=== PATIENT | female | born 1995 | race Caucasian/White ===

== ENCOUNTER 2020-03-16 11:01 | Emergency (ER) | payer MEDICAID, SELFPAY ==
[2020-03-16 11:02] VITALS: BP 152/97; PULSE 86; RESP 16; TEMP 36.9; O2SAT 100; BMI 24.5
--- NOTE | 2020-03-16 11:16 | ED.DCSUM_ITS ---
History of Present Illness Informant: Patient Occurred: Yesterday Mechanism/Context: Injury Onset: Yesterday Context: Sudden Onset Timing: Continuous Quality of Pain: Sharp, Throbbing Location: right knee Current Severity: Severe Maximum Severity: Severe Worsened by: movements, walking Relieved by: nothing Associated Symptoms: Negative for: Parasthesia, Weakness, Loss of Funtion Narrative: 24-year-old female with history of previous right ACL repair x2 presents with right knee injury. Yesterday she was walking on the stairs when her knee buckled and popped and gave out on her and she fell. She is having right knee pain and swelling. She feels it could be another ACL injury. She was at the emergency department at [facility] this morning they did an x-ray but told her they were unable to do an MRI. She presents here as well because she is having uncontrolled pain with anti-inflammatories. She has been resting and icing. She has an appointment with orthopedic surgeon but not until next week. Denies any other review of systems at this time. Tetanus Immunization: Unknown Prior similar symptoms: Yes Recent Illness/Hospitalization: No <Chirag Martinez - Last Filed: 03/16/20 12:21> <Yahir Rodrgiuez - Last Filed: 03/16/20 12:50> Chief Complaint: Lower Extremity Injury Past Medical History Prior records reviewed: Yes Past Medical History: None Surgical History: - - right knee ACL repair x 2 and right knee meniscus repair Lives: With Family Smoking Status: Former smoker Alcohol: Occasional Drugs: None <Chirag Martinez - Last Filed: 03/16/20 12:21> <Yahir Rodriguez - Last Filed: 03/16/20 12:50> - Allergies and Home Meds Allergies/Adverse Reactions: Allergies No Known Allergies Allergy (Verified 03/16/20 11:03) Primary Care Physician: Jossy Larson DO [Primary Care Provider] - Review of Systems All systems negative except as indicated General: Denies: Chills, Fever, Malaise Eyes: Denies: Visual changes - bilaterally, Blurred Vision - bilaterally, Diplopia ENT: Denies: Rhinorrhea, Sore throat Cardiovascular: Denies: Chest pain, Palpitations, Heart racing Respiratory: Denies: Dyspnea, Cough, Sputum Gastrointestinal: Denies: Abdominal pain, Nausea, Vomiting, Diarrhea, Constipation Genitourinary: Denies: Dysuria, Hematuria, Frequency Musculoskeletal: Reports: Swelling, Extremity Pain. Denies: Neck pain, Back pain Skin: Denies: Rash, Abscess, Abrasions, Wounds Neurological: Denies: Headache, Weakness, Parasthesia, Numbness Psych: Denies: Depression, Anxiety <Chirag Martinez - Last Filed: 03/16/20 12:21> Physical Exam Vital Signs/Narrative: Vital Signs Temp Pulse Resp BP Pulse Ox 03/16/20 11:02 98.4 F 86 16 152/97 H 100 Inital Vital Signs reviewed: Yes - Extremity Exam Right Knee: Edema, Limited ROM, - - Patient's right knee is diffusely swollen. She is diffusely tender anteriorly and medially. She has limited range of motion secondary to swelling and pain. She has normal DP and PT pulse. She has no bony tenderness of her leg ankle or foot. She has no pain over her distal quadriceps. She has no pain over her hip. Her most sensation throughout her right lower extremity. Negative for: Abrasion, Contusion, Deformity, Hematoma General: Well nourished, Well developed Head: Normocephalic, Atraumatic Eyes: Perrl, EOMI ENT: No Trauma, Moist Mucous Membranes Neck: Nontender, Full ROM Cardiovascular: Regular rate, Regular rhythm, No murmurs Respiratory: No distress, CTA bilaterally, Chest nontender Abdomen: Soft, Nontender, Nondistended, Normal bowel sounds Back: Nontender Skin: Normal color, No rash, No Trauma Neurological: Alert, Oriented x3 Psychological: Normal affect, Normal Mood <Chirag Martinez - Last Filed: 03/16/20 12:21> Vital Signs/Narrative: Vital Signs Temp Pulse Resp BP Pulse Ox 03/16/20 11:02 98.4 F 86 16 152/97 H 100 <Yahir Rodriguez - Last Filed: 03/16/20 12:50> Diagnostic/Tx/Re-eval - Medical Decision Making Patient had an x-ray done this morning at [facility] which I was able to review and demonstrated postsurgical changes but no acute findings. Patient is requesting an MRI and I discussed with her we are unable to have this performed at this time emergently. She has already scheduled an appointment with her orthopedic surgeon next week which she will keep. She states that she has crutches at home as well which she did not bring with her. I advised her that she continue to rest and ice and alternate Motrin as well as Tylenol. <Chirag Martinez - Last Filed: 03/16/20 12:21> - Medical Decision Making Patient was seen with me. I did a [id number] examination with the patient. Patient presents with right knee pain that has been getting worse over the past few days. Patient was seen at another hospital and had x-rays which were negative. Patient states her pain is not being controlled with Naprosyn. Patient denies any paresthesias or weakness. Patient denies any new injuries. Vital signs are stable. Patient is afebrile. Patient is in no acute distress. Musculoskeletal exam reveals tenderness over the right knee. Extensor mechanism intact. Strength is 5/5 bilateral lower extremities. There are no sensory deficits noted. There is some guarding on examination but there is no laxity noted. Patient was given a dose of Fairmount here. Patient was given a prescription for short course of Fairmount. Patient was instructed to ice and elevate the right knee. Patient was instructed to follow-up with her orthopedic surgeon as scheduled. Patient understood and was agreeable with the plan. All questions were answered. <Yahir Rodriguez - Last Filed: 03/16/20 12:50> ED Disposition <Chirag Martinez - Last Filed: 03/16/20 12:21> <Yahir Rodriguez - Last Filed: 03/16/20 12:50> - Plan for ED Patient: Disposition: Home or Assisted Living Diagnosis: Sprain of right knee Instructions: ED Sprain Knee Prescriptions: Hydrocodone Bitart/Apap 5-325 [Fairmount 5MG-325MG] 1 tab PO Q6H PRN PRN 3 Days #10 tab PRN Reason: Pain Prescription Printed Referrals: Jossy Larson DO [Primary Care Provider] -
[2020-03-16] MEDS: HYDROcodone Bitartrate/Apap 5/325 Tablet PO (11:31)
== END 2020-03-16 12:34 | disposition home or self-care (01) ==
PROVIDERS: Emergency Provider Physician Assistant Medical; PCP Orthopaedic Surgery
DX: S83.91XA Sprain of unspecified site of right knee, initial encounter (principal); W10.9XXA Fall (on) (from) unspecified stairs and steps, initial encounter; Y93.01 Activity, walking, marching and hiking; Y92.9 Unspecified place or not applicable; Z87.891 Personal history of nicotine dependence
CPT/HCPCS: 99283

== ENCOUNTER → 2020-03-22 11:06 | Outpatient (CLI) | payer MEDICAID, SELFPAY ==
[2020-03-19 14:45] VITALS: BMI 24.5
--- NOTE | 2020-03-22 11:10 | MRI_ITS ---
STUDY: MRI RIGHT KNEE REASON FOR EXAM: Pain/swelling of the right knee after a fall, unable to bend, symptoms for 2 weeks, 2 prior surgeries. TECHNIQUE: Standardized fat and water weighted pulse sequences were obtained in all 3 orthogonal planes. COMPARISON: MRI images 10/01/2015, radiographs 09/18/2015. FINDINGS: There is a partial medial meniscectomy. There is interval development of a small horizontal tear of the free margin of the body of the medial meniscus (proton density coronal images 18, 19) tracking fluid (T2 coronal images 18, 19). There is interval development of a small oblique band of signal in the posterior horn of the medial meniscus extending to the inferior articular surface (proton density sagittal image 26), suggestive of small recurrent medial meniscal tear. Normal hyaline cartilage of the medial femorotibial compartment. Normal medial femoral condyle and tibial plateau. Normal medial collateral ligamentous complex (MCL). Normal distal semimembranosus, gracilis and semitendinosus tendons. There is a partial lateral meniscectomy without demonstrated recurrent lateral meniscal tear. Normal hyaline cartilage of the lateral femorotibial compartment. Normal lateral femoral condyle and tibial plateau. Normal proximal tibiofibular articulation. Normal lateral collateral (fibular) ligament. Normal popliteus tendon. Normal biceps femoris tendon. The anterior cruciate ligament graft appears intact (series 8 image 11). Normal posterior cruciate ligament (PCL). Normal congruent patellofemoral articulation. Normal hyaline cartilage of the patellofemoral compartment. Normal medial and lateral patellar retinaculum. Normal quadriceps tendon. Normal patellar tendon. There is postoperative scarring in Hoffa''s fat pad. There is a small joint effusion. There is a thin medial patellar plica. The soft tissues are unremarkable. There are postoperative changes of the distal femur and proximal tibia from anterior cruciate ligament reconstruction. MRI/Lower Ext Joint Only (Routine) IMPRESSION: Partial medial meniscectomy with small recurrent medial meniscal tears. Partial lateral meniscectomy without demonstrated recurrent lateral meniscal tear. Intact anterior cruciate ligament graft. Small joint effusion. Electronically Signed: Toño Giraldo MD at 12:43 EDT Tel , Service support ,
== END ==
PROVIDERS: Referring Provider Physician Assistant; Visit Provider Physician Assistant
DX: M23.51 Chronic instability of knee, right knee (principal)
CPT/HCPCS: 73721

== ENCOUNTER 2020-04-18 08:17 | Day surgery (SDC) | payer MEDICAID, SELFPAY ==
[2020-03-27 12:37] VITALS: BMI 24.5
[2020-04-18] VITALS (9 sets, daily range): BP systolic 113–139; BP diastolic 60–91; PULSE 76–92; RESP 16; TEMP 36.4–37.6; O2SAT 93–100; BMI 23.3
[2020-04-18 09:05] LABS: Internal QC Validated? YES +Cl - CLEAR BKGD; Pregnancy, Urine Negative Negative
[2020-04-18] MEDS: Lactated Ringers 1,000 ML 100 ML IV (09:11)
--- NOTE | 2020-04-18 09:36 | PCM.HP.BLA ---
History and Physical I have re-examined the patient. There are no clinical changes since date of exam. Intake Intake Visit Reasons: right knee Allergies No Known Allergies Allergy (Verified 03/16/20 11:03) [facility] Social History (Updated 03/27/20 @ 13:[address] Jossy Larson DO) Smoking Status: Former smoker HPI right knee: Details: Parts of this documentation were recorded by a scribe, this documentation accurately reflects the service provided and the decisions made by me, Dr. Jossy Larson DO 03/27/20 1233. SAMUEL KINNEY is a 24 year old F here today for F/U on right knee after having MRI completed on 03/22/2020. She states that she continues to have right knee pain with decreased ROM. She has been wearing a wrap knee brace. States that her swelling has subsided. patient has h/o ACL reconstruction of right knee in 2012, and meniscus repair in 2016. ROS Musc Reports as per HPI, Reports abnormal walking, Reports joint pain, Reports joint swelling, Reports stiffness Skin/Breast Reports as per HPI Neuro Yes abnormal walking Ortho Exam Left Knee Skin/Wound: No ecchymosis, No erythema, Yes swelling Contralateral Normal: Yes Homans Sign: No Knee ROM: No ROM-Extension -20 to 0 (approc 10 degree lag), No ROM-Flexion 0-140 (approx 50 degrees) Examination: Yes med jt line tenderness, Yes Pain with flexion, Yes Willie's Test Apprehension with Lateral Translation: No KNEE: Inspection of the right knee show some mild generalized swelling with small effusion. Patient has evident decreased range of motion with approximately 10 degrees of lag in extension and only able to flex to about 50 degrees. Patient has a lot of guarding at this time and therefore is a little difficult to perform all maneuvers. She does have discomfort with modified Willie's test. Her anterior drawer test again is difficult to ascertain with her guarding. There does appear to be some minor laxity compared to the left. She does have normal sensation throughout the extremity and intact motor function of the ankle/foot/toes. She has normal distal pedal pulses. Assessment & Plan Problems 1. Tear of medial meniscus of right knee, current, unspecified tear type, subsequent encounter J32.768H 2. Tear of lateral meniscus of right knee, current, unspecified tear type, subsequent encounter S83.281D 3. Sprain of anterior cruciate ligament of right knee, subsequent encounter S83.511D Plan Personally reviewed patients MRI fo the right knee. Patient educated that she does have a medial and lateral meniscus tear. Patient educated on the surgical precedures. Patient educated that an option for her ACL would be a new ACL with the cadaver graft if she wishes because she would not be Patient educated that her ACL is loose and if the ACL is torn she does wish to have this fixed at the same time. Patient is currently on house arrest and does have a monitoring bracelet that she will need removed prior to surgery and this will need moved to her left ankle post op. Reviewed the pre-operative plans with the patient. Risks and benefits of the procedure were fully explained, including but not limited to infection, neurovascular injury, continued pain, arthritis, stiffness, need for further surgery, re-injury, DVT, PE, general risks of anesthesia, and loss of limb or life. The patient understands all the risks and does wish to proceed with written consent for right knee arthroscopy, lat and /or med men repair, acl recon with arthrex graftlink. As well as bone grafting was discussed preoperatively Follow up post op or sooner if pain, swelling, numbness or associated symptoms, or concerns develop. All questions answered. Patient in agreement of plan. We discussed the current risk associated COVID-19. While it is understood that there is a community spread of COVID 19 the risk of wilson COVID-19 while at [facility] is very low, however, the risk cannot be completely mitigated because of the community spread of the disease. We discussed in detail the risk of exposure to and or potential harm posed by the COVID-19 virus with having a surgery/procedure at this time versus the risk of delaying the surgery/procedure. Is not possible to know either the risk of delaying the surgery procedure or chance of getting an infection with perfect accuracy, but a joint decision was made to proceed at this time with a schedule surgery/procedure as indicated on the consent form. Patient was notified that we will need to comply with any screening or testing [facility] wishes to perform or that surgery may be delayed for any positive results. Coding Level of Care Code Off vis,est,level 4 Diagnoses Tear of medial meniscus of right knee, current, unspecified tear type, subsequent encounter S83.241D ??Encounter type: subsequent encounter ??Meniscus of knee: medial ??Meniscus tear of knee type: unspecified type ??Tear current or old: current Tear of lateral meniscus of right knee, current, unspecified tear type, subsequent encounter S83.281D ??Encounter type: subsequent encounter ??Meniscus tear of knee type: unspecified type ??Tear current or old: current Sprain of anterior cruciate ligament of right knee, subsequent encounter S83.511D ??Encounter type: subsequent encounter Procedure Criteria Procedure Type: Elective COVID Risk Discussion: The surgeon/proceduralist and patient have discussed in detail the risk of exposure to and/or potential harm posed by the COVID-19 virus with having a surgery/procedure at this time versus the risk of delaying the surgery/procedure. It is not possible to know either the risk of delaying the surgery or procedure or chance of getting an infection with perfect accuracy, but a joint decision was made between the patient and the surgeon/proceduralist to proceed at this time with the scheduled surgery/procedure as indicated on the consent form.
--- NOTE | 2020-04-18 09:37 | DCINST_ITS ---
Discharge Diet: No Restrictions - Remove dressings postop day 4 and apply Band- Aids to incision sites, may shower and get incision wet postop day 4, weight- bear as tolerated left leg, call with increased pain numbness tingling or further issues arise, call if calf pain or calf swelling, start Lovenox postop day 1, take pain medications as prescribed do not take any other Tylenol products, follow-up in 2 weeks Discharge Activity: May Not Drive May shower in (days): 1 Ice area for (Minutes): 20 - Every hour while awake. Weight Bearing Status: Weight bearing as tolerated Keep extremity elevated above heart level: Operative Extremity Call your doctor if your incision/area has: Continuous Slow Oozing, Sudden Increased Bleeding, Increased Pain/ Swelling, Increased Redness, Foul Smelling Discharge Call your doctor if you observe: Fever of 101 or Higher, Coldness, Increased Pain, Numbness or Tingling, Change in Color, Calf discomfort Allergies/Adverse Reactions: Allergies No Known Allergies Allergy (Verified 04/18/20 09:05) Medications to take at Discharge Enoxaparin Sodium [Lovenox] 40 mg SQ DAILY 42 Days #42 ml 04/18/20 Oxycodone HCl/Acetaminophen [Percocet 5/325] 1 - 2 tab PO Q6H PRN PRN 5 Days #28 tab 04/18/20 The following prescriptions were given: Enoxaparin Sodium [Lovenox] 40 mg SQ DAILY 42 Days #42 ml Transmission Status: Received by [facility] Oxycodone HCl/Acetaminophen [Percocet 5/325] 1 - 2 tab PO Q6H PRN PRN 5 Days #28 tab PRN Reason: Pain Transmission Status: Received by [facility] Primary Care Physician: Care Physician,No Primary [Primary Care Provider] - Test Results: Test results from this visit will be discussed in further detail at your follow- up appointment, if applicable. Please Follow Up With: Jossy Larson, - [phone]
--- NOTE | 2020-04-18 09:37 | PCM.OPRPT ---
Report of Operation Date of Procedure: 04/18/20 Pre-Operative Diagnosis: Right knee medial and lateral meniscus tears, lax ACL with from prior reconstruction Post-Operative Diagnosis: Same Surgery/Procedure Performed:: Right knee arthroscopy, medial and lateral meniscectomies, ACL reconstruction with Arthrex graft link 9.5 lye peel operator: Delonte Anderson Type of Anesthesia:: General Anesthesiologist: Sreedhar Stone Specimen's removed: tt- 105 Estimated Blood Loss (mL): min Fluids Replaced: 900cc lr Description of Procedure: Preop note Patient is a 24-year-old female well-known to me. Patient has a history of a right ACL and meniscus repair in the past. Patient states recurrent instability of the right knee and pain. xrays show button in the notch which was potential cause of instability and looseness of graft and we tried to treat conservatively but has repeated instability. Repeat MRI confirms medial and lateral meniscus tears with intact graft. On physical exam she does have a lax drawer and Lauckman's on her right lower extremity and pain med/lateral. Discussed all options with patient we had in the past repair diminished medial meniscus and not her ACL at that time she however at this point she is still loose and she has recurrent medial meniscus tears and is a candidate for ACL revision. Risk benefits and alternatives were discussed the patient risk include but not limited to blood loss, blood clot, infection, stiffness, arthrofibrosis, neurovascular, failure procedure, loss of life and loss of limb. Patient is aware like to do the right knee arthroscopy ACL reconstruction with allograft graft link, partial medial lateral meniscus meniscectomy versus medial meniscus medial lateral meniscus repairs. Deejay OSEI We discussed the current risk associated COVID-19. While it is understood that there is a community spread of COVID 19 the risk of wilson COVID-19 while at [facility] is very low, however, the risk cannot be completely mitigated because of the community spread of the disease. We discussed in detail the risk of exposure to and or potential harm posed by the COVID-19 virus with having a surgery/procedure at this time versus the risk of delaying the surgery/procedure. Is not possible to know either the risk of delaying the surgery procedure or chance of getting an infection with perfect accuracy, but a joint decision was made to proceed at this time with a schedule surgery/procedure as indicated on the consent form. Patient was notified that we will need to comply with any screening or testing [facility] wishes to perform or that surgery may be delayed for any positive results. Operative note Patient seen and examined preoperative holding area. Right knee was marked. Patient brought to the operating placed supine on the operating table. Signed, anesthesia, antibiotics were administered. The right leg was prepped and draped in usual usual sterile fashion with a tourniquet on her upper thigh. All bony prominences well-padded and SCDs placed on her contralateral limb. We marked out our incision from her previous portals from her previous surgery as well as her anterior medial tibial incision as well as her lateral femoral incision from the flip cutter. Right leg was then elevate exsanguinated tourniquet was raised her pressure of 250 torr. We repaired the Arthrex graft link graft on the back table in standard technique. We created an anterior lateral portal with 11 blade. Begin our diagnostic arthroscopy.. The patellofemoral joint was unremarkable moved to the medial joint line. Created an anteromedial portal under direct visualization. There was extensive scarring throughout the anterior medial anterior lateral portal and joint recesses. We then inserted a shaver and shaved back the anteromedial anteriorly lateral aspect. The post posterior horn to mid body of the medial meniscus was then completely torn off and scarred and anteriorly which was gently released with a shaver and was not reparable. She had barely any remnant meniscus of the mid body left. We then inserted probed the remaining meniscus was intact and stable probing. She had some arthritic changes already developing on the medial aspect of her medial tibial plateau as well as some spur formation on the distal medial femoral cortex condyle. The ACL was then visualized and we did a drawer under direct visualization and the graft itself was lax. We then shaved out the ACL. We then moved to the lateral meniscus there is a anterior leading edge tear of the anterior horn of the of the lateral meniscus was gently debrided but debrided back to a stable rim. The rest of the meniscus was intact and stable probing. We visualized her tunnel which is probably a little more anterior than 1 would have liked we will visualize this and placed our femoral tunnel a bit more posterior we drilled a weight measure 9.5 in the back table for graft we did in standard technique drill with a flip cutter 25 mm back using a 9.5. We then did the same on the tibial side in standard technique. After drilling we did make our tibial side drill tunnel bit more anterior as to bypass both tunnels we do not have to graft or use cement for any of the previous tunnels. We then placed the graft we placed the graft through the femoral tunnel flipped the button on the lateral femoral cortex brought the graft into the femoral tunnel shaved please note that prior to this we did irrigate out any bony pieces both on the femoral tunnel and tibial tunnel. We then moved to the tibial tunnel brought the graft through the tibial tunnel after retrieving it from the anteromedial tibial tunnel distally. We then placed a dog bone button over the anteromedial tibial with the leg in extension and slight posterior drawer placed. We then brought the graft further into the femoral tunnel with a from the femoral side. We then truncated the white sutures on either side which tied the suture please note over the dog been prior to this. We then irrigated all incisions copious as a sterile saline the portals were closed with interrupted nylon stitches the incisions were closed with 2-0 Vicryl and 4-0 nylon. Tourniquet was deflated for total working time of 105 minutes. Sterile dressings and a brace locked in extension during ambulation and at night and allowed to be 0 to 90 degrees during seated. No complication child recovery room in stable condition patient received a postop regional block Postoperative note Toe-touch weightbearing right leg Discussed with boyfriend Pharmacy has prescriptions we will start Lovenox postop day 1 Patient to receive her alcohol bracelet this afternoon or tomorrow Call with increased pain numbness tingling or issues arise Discussed signs and symptoms of blood clot and what to watch for patient to place ankle sensor on opposite ankle and to watch for swelling This note was generated with [employer] dictation software. It may contain incorrect words, spelling, and punctuation that were not noted in checking the note before signing.
[2020-04-18] MEDS: Cefazolin 2 GM in 0.9% Normal Saline 100 ML IV (09:42)
[2020-04-18] MEDS: Epinephrine (1 mg/ml) 1 MG/ML VIAL (12:06)
[2020-04-18] MEDS: Mupirocin Ointment 22gm Tube 1 APPLIC (12:06)
[2020-04-18] MEDS: HYDROcodone Bitartrate/Apap 5/325 Tablet PO (14:00)
== END 2020-04-18 14:41 | disposition home or self-care (01) ==
LOC: SDC 08:19 → AC 08:20
PROVIDERS: Anesthesiology; Referring Provider Orthopaedic Surgery; Visit Provider Orthopaedic Surgery
PROC: (CPT 29888; principal; 2020-04-18 09:40)
DX: S83.241A Other tear of medial meniscus, current injury, right knee, initial encounter (principal); S83.281A Other tear of lateral meniscus, current injury, right knee, initial encounter; S83.511A Sprain of anterior cruciate ligament of right knee, initial encounter; Z11.59 Encounter for screening for other viral diseases; Z87.891 Personal history of nicotine dependence
CPT/HCPCS: 29880; 29888; 64447; 81025; 87635; C1713; G2023; J7120; J2405; U0003

== ENCOUNTER 2020-10-09 11:00 | Outpatient (RCR) | payer MEDICAID, SELFPAY ==
[2020-10-02 09:36] VITALS: BP 128/92; PULSE 92; RESP 16; TEMP 36.8; BMI 22.6
--- NOTE | 2020-10-02 12:27 | PCM.WC.HP ---
(1) Surgical wound dehiscence Status: Chronic Qualifiers: Encounter type: initial encounter Qualified Code(s): T81.31XA - Disruption of external operation (surgical) wound, not elsewhere classified, initial encounter Code(s): T81.31XA - Disruption of external operation (surgical) wound, not elsewhere classified, initial encounter (2) Surgical site infection Status: Chronic Code(s): T81.49XA - Infection following a procedure, other surgical site, initial encounter (3) Open wound of knee with complication Status: Chronic Qualifiers: Encounter type: initial encounter Laterality: right Qualified Code(s): S81.001A - Unspecified open wound, right knee, initial encounter Code(s): S81.009A - Unspecified open wound, unspecified knee, initial encounter (4) Infection of right knee Status: Chronic Code(s): M00.9 - Pyogenic arthritis, unspecified History of Present Illness Date of Service: 10/02/20 Chief Complaint: Infected wound, right knee History of Wound: This is a 24-year-old generally healthy white female who presents with an open, draining sinus tract inferior and medial to her right knee. She has a history of 3 prior knee surgeries in the past, performed by Dr. Jossy Larson, Orthopedic Surgeon. Among the prior surgeries, a right knee arthroscopy, lateral meniscectomy, and bucket-handle repair was performed on October 31, 2015. The patient's most recent surgery was performed on October 19, 2019, at which time she underwent a right knee arthroscopy, medial and lateral meniscectomies, and an ACL reconstruction with an Arthrex graft link 9.5. The patient apparently recovered uneventfully from her most recent surgery in April, with complete healing of the arthroscopic surgical sites. Approximately 1 month ago. The patient noted fluctuance and erythema at one of the arthroscopic entry sites medial and inferior to the right knee. The fluctuant area subsequently spontaneously drained a lot of pus. Since that time, the site has continued to drain a yellowish, cloudy, purulent-appearing liquid drainage. She has been referred to our wound healing facility by her currency exchange specialist for further evaluation and management. According to the patient, she is yet to achieve full range of motion in the right knee postoperatively. She wears a splint to bed each night which is intended to enhance the degree of extension in her right knee joint. She ambulates with a slight limp, but is independent and fully mobile. It appears as though cultures have not been previously obtained, though the patient has previously completed a course of oral Bactrim. She is currently using mupirocin topically to the wound on a daily basis. She denies recent fever, sweats, or chills. Past Medical History Past Medical History: Chronic Problems Surgical wound dehiscence (Chronic) Surgical site infection (Chronic) Open wound of knee with complication (Chronic) Infection of right knee (Chronic) Past Medical History: Patient's history is negative for myocardial infarction, congestive heart failure, hypertension, diabetes mellitus, cerebrovascular accident, cancer, renal disease, pulmonary disease, thyroid disease, and hyperlipidemia. Surgical History: - - Right knee ACL repair x 2 and right knee meniscus repair; the patient has undergone an IUD placement and subsequent removal; the patient is a Ab0. Allergies/Adverse Reactions: Allergies No Known Allergies Allergy (Verified 10/02/20 09:50) Home Medications: Ambulatory Orders Medication Instructions Recorded mupirocin 2 % topical ointment 1 applic TOPICAL BID #15 g 09/06/20 - Family History Paternal - - Patient's father is 53 years of age and healthy. The patient's mother is 51 years of age and healthy. Social History: Patient is employed as a environmental compliance officer. She denies use of tobacco products. She consumes alcoholic beverages occasionally. Lives: Alone Smoking Status: Former smoker Tobacco Use: Non-smoker Alcohol: Occasional Drugs: None Review of Systems Constitutional: Denies: Chills, Fever, Weight Change Eyes: Denies: Pain, Vision Change HEENT: Denies: Difficulty Hearing, Difficulty Swallowing, Sinus Congestion Cardiovascular: Denies: Chest Pain, Palpitations Respiratory: Denies: Cough, Shortness of Breath Gastrointestinal: Denies: Diarrhea, Nausea, Vomiting Genitourinary: Denies: Dysuria, Hematuria Endocrine: Denies: Heat/ Cold Intolerance, Polydipsia, Polyuria Hematologic/ Lymphatic: Denies: Easy Bruising, Easy Bleeding - Physical Exam Vital Signs Temp Pulse Resp BP 98.2 F 92 16 128/92 H 10/02/20 09:36 10/02/20 09:36 10/02/20 09:36 10/02/20 09:36 General: Alert, Oriented x3, Cooperative, No apparent distress, Well developed, Well nourished, - - The patient appears to be of normal body habitus. HEENT: Atraumatic, PERRLA, EOMI, Normocephalic Oral: Moist Mucosa Neck: No JVD Lungs: Normal air movement Abdomen: Non-Distended Extremities: No clubbing, No cyanosis, No edema, No Calf Tenderness Addt'l Wound Findings: A very small opening is noted inferior to the right knee, and located medially. This appears to be the external opening of a sinus tract. The opening is only approximately 2 mm in diameter. There is a slight amount of surrounding erythema. Manual pressure enables the elicitation of purulent drainage from the opening. Therefore, after expressing a small amount of purulent drainage from the site, swab cultures were obtained for aerobic and anaerobic growth. A sterile metal probe was used carefully to probe the tract, and it was found that a tract exists extending superiorly up towards the knee joint and measuring approximately 1.6 cm in length. The probe appeared to contact underlying bone. Wound Measurements and Assessment WC - Nurse 1 - General Ulcer Measurement Start: 10/02/20 09:26 Freq: Status: Active Protocol: Activity Type Activity Date Activity User E-Sign Co-Sign Detail Recorded Client Recorded Date Recorded By Document 10/02/20 09:36 [facility] [id number] 10/02/20 09:49 [facility] 10/02/20 09:36 Wound Center Nurse 1 [Ulcer Assessment] #1 L MEDIAL KNEE -Combined with other wound No -Current Size (cm) - Length 0.6 -Current Size (cm) - Width 0.1 -Current Size (cm) - Depth 0.2 -Total Square Cm 0.06 -Date of Last Picture (Recall this 10/02/20 field) -Photo Taken Yes -Epithelialization None Present -Tunneling No -Undermining/Tunneling No -Circular Undermining No -Exudate Amt Small -Exudate Type Serous -Wound Margin Distinct, Outline Attached -Granulation Amt None Present (0 %) -Slough/Fibrin Yes -Necrosis Amt Large (67-100%) -Necrotic Tissue Type Adherent Slough -Texture (May-wound Skin Appearance) Assessed, Localized Edema ,Scarring -Moisture (May-wound Skin Appearance Assessed ) -Color (May-wound Skin Appearance) Assessed -Temperature (May-wound Skin No Abnormality Appearance) (Pt Warm) -Tenderness on Palpation (May-wound Yes Skin Appearance) -Ulcer Cleansing Rinsed/ Irrigated with Saline -Foul Odor after Cleansing No -Anesthetic Used 5% Lidocaine Gel [Edema Assessment] -Lower Limb Edema Present No -Right Calf (cm) 30.2 -Right Ankle (cm) 18.6 WC - Nurse 2 - General Ulcer CM Notes Start: 10/02/20 09:26 Freq: Status: Active Protocol: Activity Type Activity Date Activity User E-Sign Co-Sign Detail Recorded Client Recorded Date Recorded By Document 10/02/20 11:40 [address] [id number] 10/02/20 11:42 PL 10/02/20 11:40 Wound Center Nurse 2 [Procedure/Treatment] #1 L MEDIAL KNEE -Procedure Performed No -Post Debridement (cm) - Length 0.1 -Post Debridement (cm) - Width 0.1 -Post Debridement (cm) - Depth 1.6 -Total Square (Post) (cm) 0.01 -Wound/Ulcer Outcome Not Healed -Ulcer Cleansing Rinsed/ Irrigated with Saline -Foul Odor after Cleansing No [See Physician Procedure note for Specifics] Pain Scale: 0-10 Numeric [Pain] -Is Patient Pain Free? Yes - Nurse 3 - General Ulcer D/C NN Start: 10/02/20 09:26 Freq: Status: Active Protocol: Activity Type Activity Date Activity User E-Sign Co-Sign Detail Recorded Client Recorded Date Recorded By Document 10/02/20 10:37 [facility] [id number] 10/02/20 10:38 [facility] 10/02/20 10:37 Wound Care Nurse 3 [Wound Dressing] #1 L MEDIAL KNEE -Ulcer Cleansing Rinsed/ Irrigated with Saline -Foul Odor after Cleansing No -Primary Dressing Applied Other -Other Dressing BACTROBAN -Primary Dressing Covered/Secured Dry Gauze, with Secured with Tape [Post Procedure Tolerated] -Treatment Response Procedure Tolerated Well Pain Scale: 0-10 Numeric [Pain] -Is Patient Pain Free? Yes - Visit Discharge [Visit Discharge Information] -Discharge Condition Stable -Ambulatory Status Ambulatory -Transportation Private Auto Debridement Note Post-Debridement Measurements/Treatment WC - Nurse 2 - General Ulcer CM Notes Start: 10/02/20 09:26 Freq: Status: Active Protocol: Activity Type Activity Date Activity User E-Sign Co-Sign Detail Recorded Client Recorded Date Recorded By Document 10/02/20 11:40 PL [id number] 10/02/20 11:42 PL 10/02/20 11:40 Wound Center Nurse 2 #1 L MEDIAL KNEE -Procedure Performed No -Post Debridement (cm) - Length 0.1 -Post Debridement (cm) - Width 0.1 -Post Debridement (cm) - Depth 1.6 -Total Square (Post) (cm) 0.01 -Wound/Ulcer Outcome Not Healed -Ulcer Cleansing Rinsed/ Irrigated with Saline -Foul Odor after Cleansing No Pain Scale: 0-10 Numeric Is Patient Pain Free? Yes - Nurse 3 - General Ulcer D/C NN Start: 10/02/20 09:26 Freq: Status: Active Protocol: Activity Type Activity Date Activity User E-Sign Co-Sign Detail Recorded Client Recorded Date Recorded By Document 10/02/20 10:37 [facility] [id number] 10/02/20 10:38 [facility] 10/02/20 10:37 Wound Care Nurse 3 #1 L MEDIAL KNEE -Ulcer Cleansing Rinsed/ Irrigated with Saline -Foul Odor after Cleansing No -Primary Dressing Applied Other -Other Dressing BACTROBAN -Primary Dressing Covered/Secured with Dry Gauze, Secured with Tape Treatment Response Procedure Tolerated Well Pain Scale: 0-10 Numeric Is Patient Pain Free? Yes WC - Visit Discharge Discharge Condition Stable Ambulatory Status Ambulatory Transportation Private Auto No debridement was completed today Assessment/Plan Assessment: This is a generally healthy 24-year-old female who presents with 3 prior arthroscopic surgical procedures relative to her right knee. The most recent procedure was performed on April 18, 2020, entailing a right knee arthroscopy, medial and lateral meniscectomies, and an ACL reconstruction with Arthrex graft link 9.5. Judging from the patient's recent history, and presenting manifestations, there is concern as to underlying infection which may involve bone (osteomyelitis), or prosthetic material such as savannah, clips, sutures, etc. Plan: Swab cultures have been obtained of the purulent drainage from the patient's right knee wound, which is suspected to be a draining sinus tract which may be related to an underlying infection of wound or prosthetic material. We will await the results of culture and sensitivity, and react accordingly. These results will likely require at least 2 to 3 days. Given concerns regarding involvement of the underlying bone or joint, or possibly prosthetic material, it is felt that a multidisciplinary approach is warranted. Thus, Dr. Larson will be contacted,or her PA, Delonte Anderson. It will be helpful to understand the extent of infection and the tissues involved. This will likely require some form of imaging. A discussion will be undertaken as to the most optimal imaging modality for the patient to undergo to determine the extent of infection, and the involvement of underlying tissues. Patient is to return in 1 week for reassessment. By that time, it is anticipated that a multidisciplinary approach will have been formulated in conjunction with the patient's orthopedic surgeon. The patient is not a smoker. Influenza vaccine was not administered today. The patient weighs 120 pounds. She stands 5 feet 1 inches tall. Her BMI is 22.7, which is normal.
[2020-10-09 11:14] VITALS: BP 151/93; PULSE 100; TEMP 36.9; BMI 22.6
--- NOTE | 2020-10-09 12:57 | HP.PCM_ITS ---
(1) Surgical wound dehiscence Status: Chronic Qualifiers: Encounter type: subsequent encounter Qualified Code(s): T81.31XD - Disruption of external operation (surgical) wound, not elsewhere classified, subsequent encounter Code(s): T81.31XA - Disruption of external operation (surgical) wound, not elsewhere classified, initial encounter (2) Surgical site infection Status: Chronic Code(s): T81.49XA - Infection following a procedure, other surgical site, initial encounter (3) Open wound of knee with complication Status: Chronic Qualifiers: Encounter type: subsequent encounter Laterality: right Qualified Code(s): S81.001D - Unspecified open wound, right knee, subsequent encounter Code(s): S81.009A - Unspecified open wound, unspecified knee, initial encounter (4) Infection of right knee Status: Chronic Code(s): M00.9 - Pyogenic arthritis, unspecified History of Present Illness Date of Service: 10/09/20 Chief Complaint: Infected wound, right knee History of Wound: This is a 24-year-old generally healthy white female who presented with an open, draining sinus tract inferior and medial to her right knee. She has a history of 3 prior knee surgeries in the past, performed by Dr. Jossy Larson, Orthopedic Surgeon. Among the prior surgeries, a right knee arthroscopy, lateral meniscectomy, and bucket-handle repair were performed on October 31, 2015. The patient's most recent surgery was performed on October 19, 2019, at which time she underwent a right knee arthroscopy, medial and lateral meniscectomies, and an ACL reconstruction with an Arthrex graft link 9.5. The patient apparently recovered uneventfully from her most recent surgery in April, with complete healing of the arthroscopic surgical sites. Approximately 1 month prior to presentation, the patient noted fluctuance and erythema at one of the arthroscopic entry sites medial and inferior to the right knee. The fluctuant area subsequently spontaneously drained a lot of pus. Since that time, the site has continued to drain a yellowish, cloudy, purulent- appearing liquid drainage. She has been referred to our wound healing facility by her hospitality specialist for further evaluation and management. According to the patient, she is yet to achieve full range of motion in the right knee postoperatively. She wears a splint to bed each night which is intended to enhance the degree of extension in her right knee joint. She ambulates with a slight limp, but is independent and fully mobile. It appeared as though cultures had not been previously obtained, though the patient had previously completed a course of oral Bactrim. She was using mupirocin topically to the wound on a d aily basis. She denied recent fever, sweats, or chills. Past Medical History Past Medical History: Chronic Problems Surgical wound dehiscence (Chronic) Surgical site infection (Chronic) Open wound of knee with complication (Chronic) Infection of right knee (Chronic) Surgical History: - - Right knee ACL repair x 2 and right knee meniscus repair; the patient has undergone an IUD placement and subsequent removal; the patient is a Ab0. Allergies/Adverse Reactions: Allergies No Known Allergies Allergy (Verified 10/02/20 09:50) Home Medications: Ambulatory Orders Medication Instructions Recorded mupirocin 2 % topical ointment 1 applic TOPICAL BID #15 g 09/06/20 - Family History Paternal - - Patient's father is 53 years of age and healthy. The patient's mother is 51 years of age and healthy. Lives: Alone Smoking Status: Former smoker Tobacco Use: Non-smoker Alcohol: Occasional Drugs: None Review of Systems Constitutional: Denies: Chills, Fever, Weight Change Eyes: Denies: Pain, Vision Change HEENT: Denies: Difficulty Hearing, Difficulty Swallowing, Sinus Congestion Cardiovascular: Denies: Chest Pain, Palpitations Respiratory: Denies: Cough, Shortness of Breath Gastrointestinal: Denies: Diarrhea, Nausea, Vomiting Genitourinary: Denies: Dysuria, Hematuria Endocrine: Denies: Heat/ Cold Intolerance, Polydipsia, Polyuria Hematologic/ Lymphatic: Denies: Easy Bruising, Easy Bleeding - Physical Exam Vital Signs Temp Pulse Resp BP 98.5 F 100 16 151/93 H 10/09/20 11:14 10/09/20 11:14 10/02/20 09:36 10/09/20 11:14 General: Alert, Oriented x3, Cooperative, No apparent distress, Well developed, Well nourished HEENT: Atraumatic, PERRLA, EOMI, Normocephalic Oral: Moist Mucosa Neck: No JVD Lungs: Normal air movement Abdomen: Non-Distended Extremities: No clubbing, No cyanosis, No edema, No Calf Tenderness Addt'l Wound Findings: A small open wound persists of the right lower extremity, located inferior and slightly medial to the right knee. The opening is very small. It appears to represent a sinus tract. There is little or no surrounding erythema. The site has again been gently probed with a sterile metal probe, and appears to track superiorly towards the knee joint, extending to underlying bone. With manual pressure in the area, a slightly yellowish, turbid fluid is expressed, which was cultured today by swab, for both aerobic and anaerobic growth. This is despite the fact that cultures were obtained last week, and were positive for Corynebacterium minutissium, rare in amount, and a possible skin contaminant. Skin: No rashes Wound Measurements and Assessment WC - Nurse 1 - General Ulcer Measurement Start: 10/02/20 09:26 Freq: Status: Active Protocol: Activity Type Activity Date Activity User E-Sign Co-Sign Detail Recorded Client Recorded Date Recorded By Document 10/09/20 11:14 [id number] 10/09/20 11:21 10/09/20 11:14 Wound Center Nurse 1 [Ulcer Assessment] #1 R MEDIAL KNEE -Current Size (cm) - Length 0.5 -Current Size (cm) - Width 0.2 -Current Size (cm) - Depth 0.1 -Total Square Cm 0.10 -Wound Margin Distinct, Outline Attached -Necrosis Amt Small (1-33%) -Necrotic Tissue Type Adherent Slough -Texture (May-wound Skin Appearance) Assessed, Scarring -Moisture (May-wound Skin Appearance No Abnormality, ) Assessed -Temperature (May-wound Skin No Abnormality Appearance) (Pt Warm) -Tenderness on Palpation (May-wound No Skin Appearance) -Ulcer Cleansing Rinsed/ Irrigated with Saline -Foul Odor after Cleansing No -Anesthetic Used 5% Lidocaine Gel WC - Nurse 3 - General Ulcer D/C NN Start: 10/02/20 09:26 Freq: Status: Active Protocol: Activity Type Activity Date Activity User E-Sign Co-Sign Detail Recorded Client Recorded Date Recorded By Document 10/09/20 11:36 [facility] [id number] 10/09/20 11:37 [facility] 10/09/20 11:36 Wound Care Nurse 3 [Wound Dressing] -Primary Dressing Covered/Secured Dry Gauze, with Secured with Tape [Post Procedure Tolerated] -Treatment Response Procedure Tolerated Well Pain Scale: 0-10 Numeric [Pain] -Is Patient Pain Free? Yes WC - Visit Discharge [Visit Discharge Information] -Discharge Condition Stable -Ambulatory Status Ambulatory -Transportation Private Auto Musculoskeletal: No Muscle Wasting Neurological: Cranial nerves II-XII grossly intact, Neuro grossly intact Psych/Mental Status: Normal Affect, Appropriate, Alert and oriented to time, place, person, mood and affect Debridement Note Post-Debridement Measurements/Treatment - Nurse 2 - General Ulcer CM Notes Start: 10/02/20 09:26 Freq: Status: Active Protocol: Activity Type Activity Date Activity User E-Sign Co-Sign Detail Recorded Client Recorded Date Recorded By Document 10/02/20 11:40 PL [id number] 10/02/20 11:42 PL 10/02/20 11:40 Wound Center Nurse 2 #1 R MEDIAL KNEE -Procedure Performed No -Post Debridement (cm) - Length 0.1 -Post Debridement (cm) - Width 0.1 -Post Debridement (cm) - Depth 1.6 -Total Square (Post) (cm) 0.01 -Wound/Ulcer Outcome Not Healed -Ulcer Cleansing Rinsed/ Irrigated with Saline -Foul Odor after Cleansing No Pain Scale: 0-10 Numeric Is Patient Pain Free? Yes - Nurse 3 - General Ulcer D/C NN Start: 10/02/20 09:26 Freq: Status: Active Protocol: Activity Type Activity Date Activity User E-Sign Co-Sign Detail Recorded Client Recorded Date Recorded By Document 10/02/20 10:37 [facility] [id number] 10/02/20 10:38 [facility] Document 10/09/20 11:36 [facility] [id number] 10/09/20 11:37 [facility] 10/02/20 10/09/20 10:37 11:36 Wound Care Nurse 3 #1 R MEDIAL KNEE -Ulcer Cleansing Rinsed/ Irrigated with Saline -Foul Odor after Cleansing No -Primary Dressing Applied Other -Other Dressing BACTROBAN -Primary Dressing Covered/Secured with Dry Gauze, Dry Gauze, Secured with Secured with Tape Tape Treatment Response Procedure Procedure Tolerated Well Tolerated Well Pain Scale: 0-10 Numeric Is Patient Pain Free? Yes Yes - Visit Discharge Discharge Condition Stable Stable Ambulatory Status Ambulatory Ambulatory Transportation Private Auto Private Auto No debridement was completed today Assessment/Plan Active Problems Surgical wound dehiscence (Chronic) Surgical site infection (Chronic) Open wound of knee with complication (Chronic) Infection of right knee (Chronic) Assessment: This is a generally healthy 24-year-old female who presented with 3 prior arthroscopic surgical procedures on her right knee. The most recent procedure was performed on April 18, 2020, entailing a right knee arthroscopy, medial and lateral meniscectomies, and an ACL reconstruction with Arthrex graft link 9.5. Judging from the patient's recent history, and presenting manifestations, there is concern as to underlying infection which may involve bone (osteomyelitis), or prosthetic material such as savannah, clips, sutures, etc. the culture, obtained last week, has been positive for Corynebacterium minutissium, which was rare in amount, and a possible skin contaminant. Plan: Swab cultures have been obtained of the purulent drainage from the patient's right knee wound, which is suspected to be a draining sinus tract related to an underlying infection of bone or prosthetic material. Cultures obtained last week were positive for Corynebacterium minutissium, though rare, and possibly a skin contaminant. A repeat culture has been obtained today. We will await the results of culture and sensitivity, and react accordingly. Given concerns regarding involvement of the underlying bone or joint, or possibly prosthetic material, it is felt that a multidisciplinary approach is warranted. I spoke 1 week ago with NAZ Marti, who is associated with Dr. Larson's practice. It will be helpful to understand the extent of infection and the tissues involved, likely to require some form of imaging. A discussion was undertaken with Delonte Anderson as to the most optimal imaging modality for the patient to undergo to determine the presence and extent of infection, and the involvement of underlying tissues. It was decided that the patient would most benefit from an MRI. Delonte Anderson indicated that he would initiate the preauthorization process, and would order an MRI scan of the right knee as soon as possible. We will await those results. We also await the results of her most recent culture and sensitivity, performed today by swab. The patient is to return in 2 weeks for reassessment. By that time, it is hoped that the MRI scan will have been completed, and a plan of management will be formulated in conjunction with the patient's orthopedic surgeon. In the interim, the patient is to maintain a dry sterile gauze dressing over the site, changed at least daily. The patient is not a smoker. Influenza vaccine was not administered today. The patient weighs 120 pounds. She stands 5 feet 1 inches tall. Her BMI is 22.7, which is normal.
== END 2020-10-18 23:59 ==
LOC: WC 11:00
PROVIDERS: Referring Provider Physician Assistant; Visit Provider Surgery
DX: T81.31XA Disruption of external operation (surgical) wound, not elsewhere classified, initial encounter (principal); Y83.8 Other surgical procedures as the cause of abnormal reaction of the patient, or of later complication, without mention of misadventure at the time of the procedure; M00.861 Arthritis due to other bacteria, right knee; Z87.891 Personal history of nicotine dependence
CPT/HCPCS: 87070; 87075; 87077; 87205; 99212; 99213; G0463

== ENCOUNTER → 2020-10-26 07:26 | Outpatient (CLI) | payer MEDICAID, SELFPAY ==
[2020-10-09 11:14] VITALS: BMI 22.6
--- NOTE | 2020-10-26 07:27 | MRI_ITS ---
STUDY: MRI RIGHT KNEE WITH AND WITHOUT CONTRAST REASON FOR EXAM: Female, 24 years old. Open wound. 3. Prior surgeries. TECHNIQUE: Standardized fat and water weighted pulse sequences were obtained in all 3 orthogonal planes. Post contrast evaluation was obtained following administration of gadolinium. COMPARISON: 03/22/2020. FINDINGS: Patient motion. Grade 2 patellofemoral cartilage loss. Grade 3/4 cartilage loss at the lateral compartment. Grade 4 cartilage loss at the medial compartment. No acute fracture line. No acute dislocation. Extensive bone marrow edema/contusion at the proximal tibia (sagittal image 13 series 6). Status post anterior cruciate ligament reconstruction. Graft appears intact as well aligned. Normal posterior cruciate ligament. Extensive soft tissue enhancement at Hoffa''s fat pad. Extensive bone marrow enhancement at the proximal tibia. Enhancement at the tibial ACL graft attachment site. Small popliteal lymph nodes (sagittal image 12 series 10) measuring up to 1.3 cm. Moderate volume joint effusion. No popliteal cyst. Soft tissue swelling surrounds the proximal tibia extending into Hoffa''s fat pad. Scarring at Hoffa''s fat pad. Truncated appearance to the lateral meniscal body with mild extrusion (coronal image 12 series 7). Markedly truncated appearance of the medial meniscus with minimal residual intact normal meniscal tissue (sagittal image 16 through 20 series 6). No new meniscal tears identified. Normal medial collateral ligament. Normal lateral collateral ligament. Normal distal semimembranosus, gracilis and semitendinosus tendons. Normal proximal tibiofibular articulation. Normal popliteus tendon. Normal biceps femoris tendon. Intact medial and lateral patellar retinaculum. Intact quadriceps tendon. Intact patellar tendon. MRI/Lower Ext Joint Only W/WO Cont IMPRESSION: Extensive Hoffa''s fat pad soft tissue swelling with additional proximal tibial bone marrow edema/contusion and enhancement (potential inflammatory/stress reaction versus infectious etiology given the clinical history; correlate ESR/CRP, blood cultures and WBC) Status post ACL repair with graft intact Revisualized medial and lateral partial meniscectomies Advanced medial and lateral compartment cartilage loss Slightly prominent popliteal lymph nodes (statistically reactive/inflammatory) Moderate volume joint effusion Electronically Signed: Yahir Knutson DO at 9:19 EST Tel , Service support ,
== END ==
PROVIDERS: Referring Provider Physician Assistant; Visit Provider Physician Assistant
DX: T81.31XA Disruption of external operation (surgical) wound, not elsewhere classified, initial encounter (principal); T81.49XA Infection following a procedure, other surgical site, initial encounter; S81.009A Unspecified open wound, unspecified knee, initial encounter; M00.9 Pyogenic arthritis, unspecified
CPT/HCPCS: 73723; A9575

== ENCOUNTER → 2020-10-29 12:32 | Outpatient (CLI) | payer MEDICAID, SELFPAY ==
[2020-10-09 11:14] VITALS: BMI 22.6
[2020-10-29 13:49] LABS: Absolute Lymphocyte Count 2.55 X10^3/uL (0.83-4.51); Absolute Neutrophil Count 9.4 X10^3/uL (2.0-7.7); Basophil# 0.05 X10^3/uL; Basophil% 0.4 % (0-1); Eosinophil# 0.04 X10^3/uL; Eosinophils% 0.3 % (0-5); Hematocrit 43.8 % (37-47); Hemoglobin 14.5 g/dL (12.0-15.0); Lymphocyte # 2.55 X10^3/ul (4.0); Lymphocyte % 19.5 % (19-41); Mean Corp Hgb Conc 33.1 g/dL (32-36); Mean Corpuscular Hgb 31.7 pg (27.0-32.0); Mean Corpuscular Volume 95.8 fL (81-99); Mean Platelet Vol. 9.8 fl (6.2-12.0); Monocyte# 0.97 X10^3/uL; Monocyte% 7.4 % (0-10); NRBC Flagged by Analyzer 0 % (0-5); Neutrophil # 9.42 X10^3/uL (2.7-7.7); Neutrophil % 71.9 % (47-70); Platelet Count 402 K/mm3 (150-450); RBC Distribution Width CV 12.7 % (11.6-14.6); RBC Distribution Width SD 45.1 fl (35.1-43.9); Red Blood Count 4.57 M/mm3 (4.2-5.4); White Blood Count 13.1 K/mm3 (4.4-11.0)
[2020-10-29 14:02] LABS: CRP 7.63 mg/L (0.0-3.0)
[2020-10-29 14:04] LABS: Erythrocyte Sedimentation Rate 7 mm/hr (0-30)
== END ==
PROVIDERS: Visit Provider Physician Assistant
DX: T81.49XA Infection following a procedure, other surgical site, initial encounter (principal); T81.31XA Disruption of external operation (surgical) wound, not elsewhere classified, initial encounter; S81.009A Unspecified open wound, unspecified knee, initial encounter; M00.9 Pyogenic arthritis, unspecified
CPT/HCPCS: 36415; 85025; 85652; 86140; 87040

== ENCOUNTER 2020-11-01 11:56 | Inpatient (IN) | payer MEDICAID, SELFPAY ==
[2020-11-01] VITALS (10 sets, daily range): BP systolic 124–144; BP diastolic 73–103; PULSE 71–100; RESP 16–18; TEMP 35.9–37.6; O2SAT 94–100; BMI 22.6
--- NOTE | 2020-11-01 | FLU_PTH ---
PATIENT: SAMUEL KINNEY LOC: MS3 U#:[id number] AGE/SX: 24/F [place] [facility] [facility] [place]: Dr. Jossy Larson, : 1995 BED: 1 DIS: 11/03/2020 SPEC #: [id number] RECD: 11/02/20 07:25 STATUS: KATARZYNA BRANDON #: [id number] MUSHTAQ: 11/01/20 00:[address]: Jossy Larson DEPT: CYTOLOGY RECD BY: Hari Pelayo ENTERED: 11/02/20 07:25 SP TYPE: Fluid OTHR DR: Dr. Rc You MD No Primary Care Phys Tissues: Knee, NOS Procedures: Special Stain Group II Surgery Specimen Level IV Cytospin Fluid HEADER OPERATION: Not noted PRE-OP DIAGNOSIS: Probable infected hardware, right knee TISSUE SUBMITTED: Knee fluid for cytology DIAGNOSIS CYTOLOGY Knee fluid for cytology (cytospin and cell block): Negative for malignant cells. Acute inflammation. JOELLEN:heike 11/05/2020 COMMENT Please also make reference to corresponding surgical specimen [id number]. CYTOLOGY STUDY Slides are reviewed. CYTOLOGY GROSS Received is 2 ml of red, cloudy fluid labeled with the patient's name and and designated per the requisition as knee. Submitted for cytology preparation including cell block. / heike 11/02/2020 TC:5 CPT: 13638, 34585
--- NOTE | 2020-11-01 01:10 | HP_ITS ---
I have re-examined the patient. There are no clinical changes since date of exam. Intake Intake Visit Reasons: right knee Accompanied by: Self Is patient in pain?: Yes Allergies No Known Allergies Allergy (Verified 10/30/20 10:13) [facility] Social History (Updated 09/06/20 @ 15:50 by Delonte CHILDS, NAZ) Smoking Status: Former smoker HPI right knee: Details: Parts of this documentation were recorded by a scribe, this documentation accurately reflects the service provided and the decisions made by me, Dr. Jossy Larson, DO 10/30/20 1009. SAMUEL KINNEY is a 24 year old F here today for a follow up of her right knee after eval with Dr. Roa. Also here to discuss her recent blood work and MRI. Patient completed her blood work on 10/29/2020 and her MRI was completed on 10/26/2020. Patient states she is having some irritation where her wound is infected along with some stiffness of her right knee. Patient states she was told not to return to the wound clinic until she had her MRI completed. Patient is currently not putting anything on her wound and not taking anything OTC. ROS Musc Reports system reviewed and no additional complaints, except as docu, Reports joint pain, Denies numbness, Reports stiffness, Denies tingling Neuro No numbness, No tingling Ortho Exam Right Knee Date of Surgery: 04/18/20 Knee ROM: Yes ROM-Flexion 0-140 (90) Assessment & Plan Plan Discussed with patient her blood work, such as her CRP was elevated. Patient has her inflammatory markers are elevated as well and needs to be addressed surgically with bone sent for evaluation of infection, needs albumin, lfts sent day of, overnight stay and culture following with ID. Discussed patient will have to have surgery, and be admitted overnight to administer IV ATB's post-op. Patient is risk of considerable morbidity and has been noncompliant Patient will need an albumin test done as well. Patient will need to spend two nights in the hospital to get cultures back in time. Will have Dr. Lawrence Palmer on hand during the patient's surgery. discussed lack of follow up and risks to life and limb. on physical exam, no erythema but site of previous incision has chronic Reviewed the pre-operative plans with the patient. Risks and benefits of the procedure were fully explained, including but not limited to infection, neurovascular injury, continued pain, arthritis, stiffness, need for further surgery, re-injury, DVT, PE, general risks of anesthesia, and loss of limb or life. The patient understands all the risks and does wish to proceed with written consent. All questions answered. Patient in agreement of plan. Follow up post-op or sooner if pain, swelling, numbness or associated symptoms, or concerns develop. Orders Orders: Culture, Blood (WB) 10/29/20 M00.9, S81.009A, T81.31XA, T81.49XA Culture, Blood (WB) 10/29/20 M00.9, S81.009A, T81.31XA, T81.49XA Plan Detail Follow Up post-op
[2020-11-01 12:37] LABS: Internal QC Validated? YES +Cl - CLEAR BKGD; Pregnancy, Urine Negative Negative
[2020-11-01] MEDS: Lactated Ringers 1,000 ML 100 ML IV ×2 (12:43→18:11)
[2020-11-01 13:10] LABS: AST(SGOT) 33 U/L (15-37); Alanine Aminotransfer ALT/SGPT 22 U/L (13-56); Albumin, Serum 4.7 g/dL (3.2-5.0); Alkaline Phosphatase 98 U/L (45-117); Bilirubin, Direct 0.14 mg/dL (0.00-0.30); Globulin 4.3 g/dL (2.2-4.2)
--- NOTE | 2020-11-01 13:30 | TISS_PTH ---
PATIENT: SAMUEL KINNEY LOC: MS3 U#:[id number] AGE/SX: 24/F [place] [facility] [place]11/01/[address]: Dr. Jossy Larson, : 1995 BED: 1 DIS: 11/03/2020 SPEC #: [id number] RECD: 11/01/20 15:01 STATUS: KATARZYNA BRANDON #: [id number] MUSHTAQ: 11/01/20 13:[address]: Jossy Larson DEPT: SURGICAL PATHOLOGY RECD BY: Debi Peña ENTERED: 11/02/20 08:36 SP TYPE: Tissue Bx [facility] DR: Dr. Rc You MD No Primary Care Phys Tissues: A - Right knee B - Right knee C - Right knee Procedures: Decalcification bone/plaque Surgery Specimen Level IV HEADER OPERATION: Right knee arthroscopy, extensive synovectomy/debridement PRE-OP DIAGNOSIS: Probable infected hardware, right knee TISSUE SUBMITTED: A - Right knee tendon, B - Debrided right knee tissue, C - Debrided tibia bone right knee MICROSCOPIC DIAGNOSIS A. Right knee tendon, biopsy: Tendinous tissue with degenerative change. Fibrinopurulent material. B. Right knee tissue, debridement: Synovium with acute inflammation and fibrinopurulent material. C. Tibial bone, debridement: Soft tissue with focal chronic inflammation. Bone with chronic change. No evidence of acute osteomyelitis. AM:heike 11/07/2020 MICROSCOPIC DESCRIPTION Slides are reviewed. GROSS DESCRIPTION A - Received fresh for frozen section diagnosis labeled with the patient's name is a specimen designated right knee tendon. The specimen consists of a piece of skin with underlying tissue measuring 3 x 1.5 x 0.2 cm. The underlying tissue shows an indurated area with focal possible calcification. Frozen section was canceled after talking to Dr. Larson due to indurated calcified areas. The entire specimen is submitted in one cassette after decalcification. / SJ: 11/01/20 B - Received in fixative is one container labeled with the patient's name and designated debrided right knee tissue. The specimen consists of two pieces of irregular soft tissue measuring 2 x 1 x 0.5 cm and 1 x 0.2 x 0.2 cm. The larger piece if bisected. The entire specimen is submitted in one cassette. / SJ: 11/02/20 C - Received in fixative is one container labeled with the patient's name and designated debrided tibia bone. The specimen consists of multiple pieces of bone that in aggregate measure 2 x 1 x 0.3 cm. The entire specimen is submitted in one cassette after decalcification. / JOELLEN:heike 11/02/20 TC:2 CPT: 59586 x3, 72291 x2
[2020-11-01] MEDS: Cefazolin 2 GM in 0.9% Normal Saline 100 ML IV (13:38)
[2020-11-01] MEDS: Epinephrine (1 mg/ml) 1 MG/ML VIAL (14:00)
[2020-11-01 14:32] LABS: Acid Fast Stain SEE PATHOLOGY REPORT; Cytology, Body Fluid / CSF SEE PATHOLOGY REPORT
--- NOTE | 2020-11-01 15:47 | PCM.DC.ORTHO ---
Discharge Diet: No Restrictions - nwb right leg, extension locked at night as well as during crutch use, ok to open while seated, elevate, ice and ankle pumps as tolerated, xarelto daily, call with concerns Discharge Activity: May Not Drive May shower in (days): 1 Ice area for (Minutes): 20 - Every hour while awake. Weight Bearing Status: Weight bearing as tolerated Keep extremity elevated above heart level: Operative Extremity Call your doctor if your incision/area has: Continuous Slow Oozing, Sudden Increased Bleeding, Increased Pain/ Swelling, Increased Redness, Foul Smelling Discharge Call your doctor if you observe: Fever of 101 or Higher, Coldness, Increased Pain, Numbness or Tingling, Change in Color, Calf discomfort Allergies/Adverse Reactions: Allergies No Known Allergies Allergy (Verified 11/01/20 12:26) Medications to take at Discharge Oxycodone HCl/Acetaminophen [Percocet 5/325] 1 - 2 tablet PO Q6H PRN PRN 5 Days #28 tablet 11/01/20 The following prescriptions were given: Oxycodone HCl/Acetaminophen [Percocet 5/325] 1 - 2 tablet PO Q6H PRN PRN 5 Days #28 tablet PRN Reason: Pain Transmission Status: Sent to [facility] Primary Care Physician: Care Physician,No Primary [Primary Care Provider] - Test Results: Test results from this visit will be discussed in further detail at your follow-up appointment, if applicable. Please Follow Up With: Jossy Larson, DO - [phone]
--- NOTE | 2020-11-01 15:52 | OP.PCM_ITS ---
Report of Operation Date of Procedure: 11/01/20 Pre-Operative Diagnosis: right knee arthrofibrosis; infectious vs inflammatory reaxn proximal tibia to foreign tissue graft/metal hardware Post-Operative Diagnosis: same boring machine set up operator jig: Delonte Anderson Type of Anesthesia:: General Anesthesiologist: Blas Escobar Specimen's removed: soft tissue, graft, bone, metal hardware Drains: rogelio Estimated Blood Loss (mL): 25cc Fluids Replaced: 1400cc Description of Procedure: Preop note Patient is a 24-year-old female who had a revision allograft ACL reconstruction back in April. Patient not seen in postop follow up d/t noncompliance. Patient per patient patient had increased drainage of small little pinhole from her wound she was seen as an outpatient at a urgent care and started on Bactrim she saw us about 7 days later the and site was markedly improved was told to follow- up in wound care in a week however patient failed to follow-up with wound care for over a month. She saw the wound care and at that time she had more drainage from the proximal tibial graft site where there also was metal. She patient was cultured at that time grew out a rare cornerback dura cultured a second time and is thought to be a contaminant it was a negative wound culture the second time. Patient has been noncompliant with visits to wound care as well as to our outpatient orthopedic office. We did get an MRI and MR with and without contrast to further evaluate the fact that she has chronic sinus tract at an area where she does have hardware. An MRI was inconclusive however blood work came back as an elevated CRP and white count blood cultures were negative. See chart for further details. The decision was made at that point to explore the area of the tibia she is also has some arthrofibrosis she never went to physical therapy so she has some stiffness of her right knee so this question with patient was to take her to the OR wound did extensive synovectomy debridement manipulation under anesthesia and evaluate the proximal tibial incision for infection versus inflammatory reaction to the graft. Risk benefits alternatives surgery discussed with patient. Risk include but not limited to blood loss, blood clot, infection, neurovascular, failure procedure, loss of life and loss of limb. Patient is aware like to proceed with left right knee arthroscopy repair as indicated. Covid Dragon Covid Dragon Covid Dragon Covid Operative note Patient seen and examined preoperative holding area. Right leg was marked. Patient brought to the operating placed supine on the operating table. Sign in, anesthesia, antibiotics were administered. Right leg was then prepped and draped as usual usual sterile technique. We then elevated the leg and tourniquet was raised to a pressure of 250 torr. Timeout was performed. We used her previous anterior lateral anterior medial portal placement for our arthroscopy. We flexed the knee and were able to gain full flexion we still had about 25 degree loss of extension. We performed we then performed extensive synovectomy and debridement making sure to release the anterior gutters after this was done we did noted that we had able to maintain full [id number]. She had extensive scarring and she had previous meniscectomy was there there was no new medial meniscus medial or lateral meniscus tears that were probed that were felt to be unstable however she did have extensive scarring around the patella as well and this was debrided extensively overall we irrigated the pocket apply about 1600 cc through her knee. We then moved to the tibial portion we ellipticized the track as well as the skin and sent that to pathology further evaluation without any soft tissue we did encounter just to further evaluation as well we debrided back any we sent the button that was right underneath and that was sent to for culture. We then were able to see the visualized the tibial tunnel was no purulence no pus just scar tissue. We then were able to visualize the tracts for our tibial graft sites with these were all extensively debrided and we sent bone to rule out osteomyelitis as well. The knee was irrigated cups of sterile saline any suture that we did encounter we did remove and sent to pathology.Overall he had about 27,000 L of fluid that we used during that through the arthroscopy and the proximal tibia and irrigation debridement. The portals were closed with interrupted rep to 4 oh nylons the tibial site was closed with interrupted 4 oh nylons and a [place] drains drain was placed sterile dressings and a brace locked in extension was applied to the right lower extremity. Patient taught procedure well no complication child recovery room Stable Condition Postoperative Await Final Cultures Consult ID for further evaluation for inflammatory versus infectious etiology Awaiting bone cultures as well as soft tissue cultures We will keep her on Ancef until further evaluation by ID Telma for DVT prophylaxis SCDs nonweightbearing right lower extremity brace locked in extension a separate while seated at bedside Call with increased pain numbness tingling further issues arise Elevate, ice, ankle pumps, SCDs,/ANGLE stockings
[2020-11-01] MEDS: Vancomycin IV 1,000 MG/200 ML BAG 200 MG IV (16:57)
[2020-11-01 17:14] LABS: Anion Gap 7 (5-15); BUN 10 mg/dL (7-18); BUN/Creat Ratio 10.6 RATIO (10-20); Calcium,Total 9.7 mg/dL (8.5-10.1); Chloride 105 mmol/L (98-107); Creatinine, Serum 0.94 mg/dL (0.55-1.02); EST Glomerular Filtration Rate 77 mL/min (>60); Est Glom Filt Rate - Afr Amer 93 mL/min (>60); Estimated Creatinine Clearance 69.04 ml/min; Glucose 75 mg/dL (74-106); Potassium 3.7 mmol/L (3.5-5.1); Sodium Level 137 mmol/L (136-145)
[2020-11-01] MEDS: HYDROcodone Bitartrate/Apap 5/325 Tablet PO (18:02)
[2020-11-01 18:57] LABS: M R Staph aureus DNA By PCR Negative (Negative); Probe Check PASS; Specimen Processing Control PASS; Staph aureus DNA By PCR NEGATIVE (Negative)
--- NOTE | 2020-11-01 19:54 | PCM.RX.CS ---
Consult Pharmacy has been consulted to manage selected antiobiotic: Vancomycin Type of Consult: New start Suspected Infection: Skin/Soft tissue Prior Doses of Antibiotics Received/Current Regimen: Received 1gm iv x 1 on 11.01.20. Labs: Sodium 137 mmol/L (136-145) 11/01/20 12:21 Potassium 3.7 mmol/L (3.5-5.1) 11/01/20 12:21 Chloride 105 mmol/L (98-107) 11/01/20 12:21 Carbon Dioxide 25.0 mmol/L (21.0-32.0) 11/01/20 12:21 Anion Gap 7 (5-15) 11/01/20 12:21 BUN 10 mg/dL (7-18) 11/01/20 12:21 Creatinine 0.94 mg/dL (0.55-1.02) 11/01/20 12:21 Est GFR (MDRD) Af Amer 93 mL/min (>60) 11/01/20 12:21 Est GFR (MDRD) Non-Af 77 mL/min (>60) 11/01/20 12:21 BUN/Creatinine Ratio 10.6 RATIO (10-20) 11/01/20 12:21 Glucose 75 mg/dL (74-106) 11/01/20 12:21 Microbiology: Microbiology 11/01/20 Unknown Fluid - Synovial (joint) Gram Stain - Final 10/31/20 11:00 Interface Orders SARS-CoV-2 Antigen (Rapid) - Final Weight used for dosin.5 kg Estimated Creatinine Clearance: 69 ml/min Goal Trough: 15-20 mcg/mL Pharmacy Plan for Drug Dosing: Will begin 750mg iv q12h per protocol. Trough level ordered for 11.03.20 before 4th cumulative dose. Pharmacy Service will continue to monitor and adjust dosing as required. Follow-Up Labs: Trough Vancomycin - 11.03.20 before 0500 dose
[2020-11-01] MEDS: Cefazolin 1 GM/50 ML BAG IV (22:00)
[2020-11-02] MEDS: HYDROcodone Bitartrate/Apap 5/325 Tablet PO ×5 (00:07→20:55)
[2020-11-02 03:46] VITALS: BP 106/46; PULSE 73; RESP 16; TEMP 36.5; O2SAT 100
[2020-11-02] MEDS: Cefazolin 1 GM/50 ML BAG IV ×3 (06:53→22:27)
[2020-11-02] MEDS: Rivaroxaban 10 MG Tablet PO (06:54)
--- NOTE | 2020-11-02 09:10 | PCM.PN.ORT ---
- Physical Exam Vitals/I&O's: Vital Signs Temp Pulse Resp BP Pulse Ox 97.7 F L 73 16 106/46 L 100 11/02/20 03:46 11/02/20 03:46 11/02/20 03:46 11/02/20 03:46 11/02/20 03:46 Oxygen Delivery Method Room Air Weight: 120 lb 2.431 oz Body Mass Index (BMI) 22.6 Intake and Output for Last 24 Hours 10/31/20 11/01/20 11/02/20 23:59 23:59 23:59 Intake Total 1745.00 / 1745.00 1548.33 / 1548.33 Output Total 800 / 800 Balance 1745.00 / 1745.00 748.33 / 748.33 Microbiology Past 72 Hours 11/01/20 Unknown Fluid - Synovial (joint) Gram Stain - Final 10/31/20 11:00 Interface Orders SARS-CoV-2 Antigen (Rapid) - Final Laboratory Results 11/01/20 12:21: Total Bilirubin 0.60, Direct Bilirubin 0.14, AST 33, ALT 22, Alkaline Phosphatase 98, Total Protein 9.0 H, Albumin 4.7, Globulin 4.3 H 11/01/20 12:21: Urine Test Negative 11/01/20 12:21: Sodium 137, Potassium 3.7, Chloride 105, Carbon Dioxide 25.0, Anion Gap 7, BUN 10, Creatinine 0.94, Estim Creat Clear Calc 69.04, Est GFR (MDRD) Af Amer 93, Est GFR (MDRD) Non-Af 77, BUN/Creatinine Ratio 10.6, Glucose 75, Calcium 9.7 11/01/20 14:29: Acid Fast Stain Pending, Miscellaneous Cytology Pending 11/01/20 15:55: S.aureus Protein A PCR NEGATIVE, MRSA (PCR) Negative Current Medications Hydrocodone Bitart/Acetaminophen (Hydrocodone Bitartrate/Apap 5/325 Tablet) 1 - 2 tablet PO Q6H PRN PRN PRN Reason: Pain Score 1-10 Last Admin: 11/02/20 06:54 Dose: 1 tablet Documented by: Lactated Ringer's () 1,000 mls @ 100 mls/hr IV .Q10H CHRISTOPHER Last Infusion: 11/02/20 02:17 Dose: 15 mls/hr Documented by: Cefazolin Sodium () 1 gm in 50 mls @ 150 mls/hr IV Q8 [facility] Last Admin: 11/02/20 06:53 Dose: 150 mls/hr Documented by: Vancomycin IV Pharmacy to Dose (1 ea/ Sodium Chloride) 500 mls @ 250 mls/hr IV PRN PRN; Protocol PRN Reason: Rx to Dose Sodium Chloride () 250 mls @ 15 mls/hr IV .[id number] PRN PRN Reason: Saline Flush Sodium Chloride () 250 mls @ 15 mls/hr IV .[id number] PRN PRN Reason: Additional IVPB Infusion Vancomycin HCl 750 mg/ Sodium (Chloride) 265 mls @ 250 mls/hr IV Q12H [facility] Last Infusion: 11/02/20 06:28 Dose: Infused Documented by: Ondansetron HCl (Ondansetron 4 Mg/2 Ml Vial) 4 mg IV Q8H PRN PRN PRN Reason: Nausea Rivaroxaban (Rivaroxaban 10 Mg Tablet) 10 mg PO DAILY@0600 [facility] Last Admin: 11/02/20 06:54 Dose: 10 mg Documented by: Sodium Chloride (0.9% Saline Lock 10 Ml Syringe) 10 - 40 ml IV UD PRN PRN Reason: SALINE FLUSH Medical Necessity - Tobacco Use Smoking Status: Former smoker Assessment/Plan s/p i&d right knee/extensive synovectomy/open debridement proximal tibia maninder stockings ordered drain pulled PT ordered - NWB, crutches; brace locked in extension during ambulation and at night, may flex as tolerated while seated ID changed antibiotics to Vanco discussed with patient actually using her dynasplint that she has at home but hasnt using discussed vangie wayt with follow patient over weekend, discharge after culture results
[2020-11-02 10:32] VITALS: BP 118/96; PULSE 94; RESP 16; TEMP 37.4; O2SAT 100
[2020-11-02] MEDS: 0.9% Saline Lock 10 ML Syringe IV ×3 (10:59→22:28)
--- NOTE | 2020-11-02 11:45 | CASEMGMT ---
RN MADAY Face to Face with patient for initial transition planning/care coordination assessment. RN CM introduced self and role at [facility]. Patient lying in bed, alert and oriented. Patient willing to participate in assessment and is able to answer all questions appropriately. Care providers, pharmacy, and demographics verified. Patient wishes to discharge home, denies need for home health at this time. Patient states she has no further needs or concerns at this time. CM to follow for discharge planning needs that may arise. PCP: No PCP, list provided to patient Specialists: [facility] Pharmacy: [facility] Insurance: [employer] Prescription Benefit: yes Living Will/HPOA: none LNOK: mother, boyfriend Living Arrangements: Patient lives with boyfriend in 2 story house, has access to bed and bath on first floor. 2 steps and grab bar to enter the home Transportation: boyfriend DME/HHC: patient denies DME. Patient receive crutches prior to discharge. Patient denies previous HHC. Disposition Plan: Patient to discharge home with family support and follow-up plans in place. Elisa BAILEY, RN, CM
--- NOTE | 2020-11-02 15:12 | CON.PCM_ITS ---
Problem List (1) Infection of right knee Status: Chronic Reason for Consult: knee infection Consulted by: Dr. Larson History of Present Illness: The patient is a 24 year old F with surgery on R knee 2015, then again 04/18/20 for meniscectomies and ACL repair with graft placement. Did ok until 2 months ago when developed R knee pain, swelling, redness, and purulence. No inciting event. Given 2 weeks of bactrim, wound cx with corynebacteria. Drainage stopped but still inflammation. Off abx for past month. No fever. Taken to OR 11/[address] Larson for washout, hardware removal, cxs. On cefazolin, added vanc last night. Feeling ok today, pain controlled. Full ROS performed and neg except as noted above. 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) Open wound of knee with complication (Chronic) Infection of right knee (Chronic) Allergies/Adverse Reactions: Allergies No Known Allergies Allergy (Verified 11/01/20 12:26) Home Medications: Ambulatory Orders Medication Instructions Recorded Oxycodone HCl/Acetaminophen 1 - 2 tab PO Q6H PRN PRN 5 Days 11/01/20 [Percocet 5/325] #28 tab Rivaroxaban [Xarelto] 10 mg PO DAILY #15 tab 11/01/20 - Social History SMOKING STATUS:: Former smoker Vital Signs Temp Pulse Resp BP Pulse Ox 99.3 F H 94 16 118/96 H 100 11/02/20 10:32 11/02/20 10:32 11/02/20 10:32 11/02/20 10:32 11/02/20 10:32 Oxygen Delivery Method Room Air Weight: 54.5 kg Body Mass Index (BMI) 22.6 Microbiology Past 72 Hours 11/01/20 16:41 Gram Stain - Final Tissue - Knee Wound Culture - Preliminary No growth-Final to follow 11/01/20 Unknown Gram Stain - Final Fluid - Synovial (joint) Body Fluid Culture - Preliminary No growth-Final to follow 11/01/20 16:41 Gram Stain - Final Tissue - Knee 11/01/20 16:41 Gram Stain - Final Incision/Surgical Site 11/01/20 16:41 Gram Stain - Final Bone - Knee 11/01/20 16:41 Gram Stain - Final Tissue - Knee 10/31/20 11:00 SARS-CoV-2 Antigen (Rapid) - Final Interface Orders Laboratory Tests Past 24 Hrs 11/01/20 11/01/20 12:21 15:55 Sodium 137 Potassium 3.7 Chloride 105 Carbon Dioxide 25.0 Anion Gap 7 BUN 10 Creatinine 0.94 Estim Creat Clear Calc 69.04 Est GFR (MDRD) Af Amer 93 Est GFR (MDRD) Non-Af 77 BUN/Creatinine Ratio 10.6 Glucose 75 Calcium 9.7 S.aureus Protein A PCR NEGATIVE MRSA (PCR) Negative - Other Studies Radiology: [] reviewed Other Studies: [] Route of nutrition/ use of supplements: [] Nutritional Intake: [] IV Site: [] Duran Catheter: [] - Physical Exam General: Alert, Oriented x3, Cooperative, No apparent distress HEENT: Atraumatic, PERRLA, EOMI Neck: Supple, No Nodes Lungs: Clear to auscultation, Normal air movement Cardiovascular: Regular rate, Regular Rhythm, No murmurs Abdomen: Soft, Non Tender, Non-Distended Extremities: No edema Skin: No rashes, Incision - RLE wrapped IV Site: Peripheral, without redness Neurological: Cranial nerves II-XII grossly intact - Assessment/Plan Antibiotics: [] Assessment/Plan: [] R knee suspected infection with sinus tract - now s/p I&D and hardware removal 11/01/[address] Larson. Surg cx pending. Single prior wound cx with corynebacteria. Requested micro hold surg cx for 14 days. If all prior hardware has been removed, should have a good chance at cure. Will follow cx results. Cont cefazolin, and added vanc to be sure corynebacteria is being covered. Will follow, thank you, d/w case manager specialist.
[2020-11-02 16:40] VITALS: BP 124/84; PULSE 68; RESP 18; TEMP 36.9; O2SAT 98
[2020-11-02 20:50] VITALS: BP 133/70; PULSE 60; RESP 18; TEMP 36.3; O2SAT 97
[2020-11-03 03:16] VITALS: BP 110/54; PULSE 83; RESP 18; TEMP 36.6; O2SAT 98
[2020-11-03] MEDS: HYDROcodone Bitartrate/Apap 5/325 Tablet PO ×2 (04:45→10:54)
[2020-11-03 05:16] LABS: Vancomycin, Trough Level 5.9 ug/mL (5.0-15.0)
[2020-11-03] MEDS: Rivaroxaban 10 MG Tablet PO (06:16)
[2020-11-03] MEDS: Cefazolin 1 GM/50 ML BAG IV (06:16)
--- NOTE | 2020-11-03 06:20 | PCM.RX.CS ---
Consult Pharmacy has been consulted to manage selected antiobiotic: Vancomycin Type of Consult: Follow-up Labs: Sodium 137 mmol/L (136-145) 11/01/20 12:21 Potassium 3.7 mmol/L (3.5-5.1) 11/01/20 12:21 Chloride 105 mmol/L (98-107) 11/01/20 12:21 Carbon Dioxide 25.0 mmol/L (21.0-32.0) 11/01/20 12:21 Anion Gap 7 (5-15) 11/01/20 12:21 BUN 10 mg/dL (7-18) 11/01/20 12:21 Creatinine 0.94 mg/dL (0.55-1.02) 11/01/20 12:21 Est GFR (MDRD) Af Amer 93 mL/min (>60) 11/01/20 12:21 Est GFR (MDRD) Non-Af 77 mL/min (>60) 11/01/20 12:21 BUN/Creatinine Ratio 10.6 RATIO (10-20) 11/01/20 12:21 Glucose 75 mg/dL (74-106) 11/01/20 12:21 Vancomycin Trough 5.9 ug/mL (5.0-15.0) 11/03/20 04:35 Microbiology: Microbiology 11/01/20 16:41 Tissue - Knee Gram Stain - Final 11/01/20 16:41 Tissue - Knee Wound Culture - Preliminary No growth-Final to follow 11/01/20 Unknown Fluid - Synovial (joint) Gram Stain - Final 11/01/20 Unknown Fluid - Synovial (joint) Body Fluid Culture - Preliminary No growth-Final to follow 11/01/20 16:41 Tissue - Knee Gram Stain - Final 11/01/20 16:41 Incision/Surgical Site Gram Stain - Final 11/01/20 16:41 Bone - Knee Gram Stain - Final 11/01/20 16:41 Tissue - Knee Gram Stain - Final 10/31/20 11:00 Interface Orders SARS-CoV-2 Antigen (Rapid) - Final Goal Trough: 15-20 mcg/mL Pharmacy Plan for Drug Dosing: Pharmacy Service will continue to monitor and adjust dosing as required. TROUGH 5.9 INCREASE TO 1500 Q12H AND REDRAW TROUGH 11/05 @ 0430 Follow-Up Labs: Trough Vancomycin Labs to be done on [date and time ordered]: 11/05 @ 1088
--- NOTE | 2020-11-03 07:28 | PN.ORTHO_ITS ---
Subjective: This morning patient states that she is doing very well postop. She states that she has felt quite a bit better in her knee since coming out of surgery. She states that it feels a lot better to straighten the knee and does not feel a pressure in the proximal tibial area (where previous incision was as well as button hardware from graft). She was able to sleep last night and states that at this point her pain is well controlled and is even at a 0 or 1 when she is just lying down. She states that it increases to approximately a 3 when she is rolling over or moving a little bit but no higher than that. She has been continually using her SCDs as well as her Polar Care. Patient has been able to eat and drink without difficulties or problems. Patient denies any nausea, vomiting, headache, visual disturbances, leg swelling, calf pains, numbness or tingling in the extremity, or any other current symptoms. Objective: Patient was examined at her bedside while she was lying down. She was sleeping/resting comfortably without any signs of distress or any signs of pain/discomfort. Her bulky dressing was taken down to examine the incision sites. There is good approximation of both the portal sites and the incision over the proximal tibia with stitches in place. There is no surrounding erythema, discharge, warmth, or other signs of inflammation or infection. Some minor tenderness around the tibial incision but nothing over the portals. Patient has soft lower leg compartments and no calf tenderness and a negative Homans. She is neurovascularly intact throughout the extremity with good sensation and normal distal pedal pulses. - Physical Exam Vitals/I&O's: Vital Signs Temp Pulse Resp BP Pulse Ox 98 F 83 18 110/54 L 98 11/03/20 03:16 11/03/20 03:16 11/03/20 03:16 11/03/20 03:16 11/03/20 03:16 Oxygen Delivery Method Room Air Weight: 120 lb 2.431 oz Body Mass Index (BMI) 22.6 Intake and Output for Last 24 Hours 11/01/20 11/02/20 11/03/20 23:59 23:59 23:59 Intake Total 1745.00 / 1745.00 2416.33 / 2416.33 1115 / 1115 Output Total 800 / 800 Balance 1745.00 / 1745.00 1616.33 / 1616.33 1115 / 1115 General: Alert, Oriented x3, Cooperative, No apparent distress Lungs: Normal air movement Extremities: No edema - No lower leg edema, Capillary Refill Less than 3 Seconds, No Calf Tenderness Skin: Incision - Good approximation of wound edges with indwelling stitches. No erythema, discharge, warmth or other signs of inflammation or infection Neurological: Neuro grossly intact, Sensory exam intact to light touch and pain Psych/Mental Status: Normal Affect, Appropriate Microbiology Past 72 Hours 11/01/20 16:41 Tissue - Knee Gram Stain - Final 11/01/20 16:41 Tissue - Knee Wound Culture - Preliminary No growth-Final to follow 11/01/20 Unknown Fluid - Synovial (joint) Gram Stain - Final 11/01/20 Unknown Fluid - Synovial (joint) Body Fluid Culture - Preliminary No growth-Final to follow 11/01/20 16:41 Tissue - Knee Gram Stain - Final 11/01/20 16:41 Incision/Surgical Site Gram Stain - Final 11/01/20 16:41 Bone - Knee Gram Stain - Final 11/01/20 16:41 Tissue - Knee Gram Stain - Final 10/31/20 11:00 Interface Orders SARS-CoV-2 Antigen (Rapid) - Final Laboratory Results 11/03/20 04:35: Vancomycin Trough 5.9 Current Medications Hydrocodone Bitart/Acetaminophen (Hydrocodone Bitartrate/Apap 5/325 Tablet) 1 - 2 tablet PO Q6H PRN PRN PRN Reason: Pain Score 1-10 Last Admin: 11/03/20 04:45 Dose: 2 tablet Documented by: Cefazolin Sodium () 1 gm in 50 mls @ 150 mls/hr IV Q8 [facility] Last Infusion: 11/03/20 06:40 Dose: Infused Documented by: Vancomycin IV Pharmacy to Dose (1 ea/ Sodium Chloride) 500 mls @ 250 mls/hr IV PRN PRN; Protocol PRN Reason: Rx to Dose Sodium Chloride () 250 mls @ 15 mls/hr IV .[id number] PRN PRN Reason: Saline Flush Last Admin: 11/03/20 04:46 Dose: 15 mls/hr Documented by: Sodium Chloride () 250 mls @ 15 mls/hr IV .[id number] PRN PRN Reason: Additional IVPB Infusion Vancomycin HCl 1,500 mg/ (Sodium Chloride) 530 mls @ 250 mls/hr IV Q12H [facility] Ondansetron HCl (Ondansetron 4 Mg/2 Ml Vial) 4 mg IV Q8H PRN PRN PRN Reason: Nausea Rivaroxaban (Rivaroxaban 10 Mg Tablet) 10 mg PO DAILY@0600 [facility] Last Admin: 11/03/20 06:16 Dose: 10 mg Documented by: Sodium Chloride (0.9% Saline Lock 10 Ml Syringe) 10 - 40 ml IV UD PRN PRN Reason: SALINE FLUSH Last Admin: 11/02/20 22:28 Dose: 10 ml Documented by: Medical Necessity - Tobacco Use Smoking Status: Former smoker Assessment/Plan Patient seen today status post left knee arthroscopy with extensive synovectomy and irrigation as well as the ellipse incision with tissue debridement of the proximal tibial incision site from previous ACL reconstruction. Multiple cultures were taken at multiple sites including serous fluid. At this time patient is doing extremely well having minimal to no discomfort while lying in the bed and very minimal pains when she rolls over or other movements. She states that she has just felt overall better in the knee waking up having the hardware removed. At this time patient's incisions show good approximation without any signs of inflammation or infection. She has no signs of DVT at this time and her lower leg compartments are soft. She is neurovascularly intact throughout the extremity. Her bulky dressing was taken down today and the dressing was changed for the patient. Her brace was reapplied. She is to continue to be in the brace at all times. This is to be locked in extension during any ambulation with crutches. She can unlock the brace to 30 degrees periodically at rest for short periods of time but again needs to have this locked in extension during ambulation's and really work on extension which is something she was lacking postop last time. Patient should continue to wear the compression stockings until further notice. From an orthopedic standpoint patient is able to be discharged today pending the results of her lab and consultation with infectious disease once they decide on her home medication/therapy choice. Patient is to follow-up in our office in 3 to 4 days for wound check/brace adjustment. She will also be following up as an outpatient with infectious disease. Patient already has her pain medications sent to pharmacy well as anticoagulation. Is to contact our office with any new injuries, increased pain, swelling, and/or any other signs or symptoms.
[2020-11-03 09:17] VITALS: BP 103/52; PULSE 61; RESP 18; TEMP 36.8; O2SAT 99
[2020-11-03] MEDS: 0.9% Saline Lock 10 ML Syringe IV (10:54)
--- NOTE | 2020-11-03 11:07 | PN.ID_ITS ---
- Physical Exam Vitals/I&O's: Vital Signs Temp Pulse Resp BP Pulse Ox 98.3 F 61 18 103/52 L 99 11/03/20 09:17 11/03/20 09:17 11/03/20 09:17 11/03/20 09:17 11/03/20 09:17 Oxygen Delivery Method Room Air Weight: 54.5 kg Body Mass Index (BMI) 22.6 Intake and Output for Last 24 Hours 11/01/20 11/02/20 11/03/20 23:59 23:59 23:59 Intake Total 1745.00 / 1745.00 2416.33 / 2416.33 1115 / 1115 Output Total 800 / 800 Balance 1745.00 / 1745.00 1616.33 / 1616.33 1115 / 1115 Microbiology Past 72 Hours 11/01/20 16:41 Tissue - Knee Gram Stain - Final 11/01/20 16:41 Tissue - Knee Wound Culture - Preliminary No growth-Final to follow 11/01/20 16:41 Tissue - Knee Gram Stain - Final 11/01/20 16:41 Tissue - Knee Wound Culture - Preliminary No growth-Final to follow 11/01/20 16:41 Incision/Surgical Site Gram Stain - Final 11/01/20 16:41 Incision/Surgical Site Wound Culture - Preliminary No growth-Final to follow 11/01/20 16:41 Bone - Knee Gram Stain - Final 11/01/20 16:41 Bone - Knee Wound Culture - Preliminary No growth-Final to follow 11/01/20 16:41 Tissue - Knee Gram Stain - Final 11/01/20 16:41 Tissue - Knee Wound Culture - Preliminary No growth-Final to follow 11/01/20 Unknown Fluid - Synovial (joint) Gram Stain - Final 11/01/20 Unknown Fluid - Synovial (joint) Body Fluid Culture - Preliminary No growth-Final to follow 10/31/20 11:00 Interface Orders SARS-CoV-2 Antigen (Rapid) - Final Laboratory Results 11/03/20 04:35: Vancomycin Trough 5.9 Current Medications Hydrocodone Bitart/Acetaminophen (Hydrocodone Bitartrate/Apap 5/325 Tablet) 1 - 2 tablet PO Q6H PRN PRN PRN Reason: Pain Score 1-10 Last Admin: 11/03/20 10:54 Dose: 2 tablet Documented by: Cefazolin Sodium () 1 gm in 50 mls @ 150 mls/hr IV Q8 [facility] Last Infusion: 11/03/20 06:40 Dose: Infused Documented by: Vancomycin IV Pharmacy to Dose (1 ea/ Sodium Chloride) 500 mls @ 250 mls/hr IV PRN PRN; Protocol PRN Reason: Rx to Dose Sodium Chloride () 250 mls @ 15 mls/hr IV .[id number] PRN PRN Reason: Saline Flush Last Admin: 11/03/20 04:46 Dose: 15 mls/hr Documented by: Sodium Chloride () 250 mls @ 15 mls/hr IV .[id number] PRN PRN Reason: Additional IVPB Infusion Vancomycin HCl 1,500 mg/ (Sodium Chloride) 530 mls @ 250 mls/hr IV Q12H [facility] Ondansetron HCl (Ondansetron 4 Mg/2 Ml Vial) 4 mg IV Q8H PRN PRN PRN Reason: Nausea Rivaroxaban (Rivaroxaban 10 Mg Tablet) 10 mg PO DAILY@0600 [facility] Last Admin: 11/03/20 06:16 Dose: 10 mg Documented by: Sodium Chloride (0.9% Saline Lock 10 Ml Syringe) 10 - 40 ml IV UD PRN PRN Reason: SALINE FLUSH Last Admin: 11/03/20 10:54 Dose: 20 ml Documented by: Medical Necessity - Tobacco Use Smoking Status: Former smoker Route of nutrition/ use of supplements: [] Nutritional Intake: [] IV Site: [] Duran Catheter: [] - Assessment/Plan Antibiotics: [] Assessment/Plan: [] R knee suspected infection with sinus tract - now s/p I&D and hardware removal 11/01/[address] Larson. Surg cx neg so far. Single prior wound cx with corynebacteria. Requested micro hold surg cx for 14 days. If all prior hardware has been removed, should have a good chance at cure. Will follow cx results. Ok for discharge on po doxy and keflex, will write for 30 days to cover for possible deep infection. ID followup in 1-2 weeks. D/w nursing. Sent rx to [facility] pharmacy.
== END 2020-11-03 13:23 | disposition home or self-care (01) | DRG 313 ==
LOC: ACINP 11:57 → MS3 11-02 07:14
PROVIDERS: Anesthesiology; Internal Medicine Infectious Disease; Admitting Provider Orthopaedic Surgery; Referring Provider Orthopaedic Surgery; Visit Provider Orthopaedic Surgery
PROC: 0SBC4ZZ Excision of Right Knee Joint, Percutaneous Endoscopic Approach (ICD-10-PCS; CPT 29870; principal; 2020-11-01 13:10)
DX: M24.661 Ankylosis, right knee (principal); T81.49XA Infection following a procedure, other surgical site, initial encounter; T81.31XA Disruption of external operation (surgical) wound, not elsewhere classified, initial encounter; M00.9 Pyogenic arthritis, unspecified; E66.01 Morbid (severe) obesity due to excess calories; Z68.22 Body mass index [BMI] 22.0-22.9, adult; Z87.891 Personal history of nicotine dependence; Z20.822 Contact with and (suspected) exposure to COVID-19; Z91.19 Patient's noncompliance with other medical treatment and regimen
CPT/HCPCS: 36415; 80048; 80076; 80202; 81025; 85025; 85652; 86140; 87040; 87070; 87075; 87102; 87176; 87205; 87206; 87426; 87640; 88108; 88305; 88311; 88313; 99251; C9803; J7050; J7120; A4216; G0463; J2405

== ENCOUNTER 2022-06-19 18:15 | Inpatient (IN) | payer MEDICAID, SELFPAY ==
[2022-06-19] VITALS (47 sets, daily range): BP systolic 123–156; BP diastolic 67–97; PULSE 64–96; TEMP 36.8–37.3; O2SAT 83–100; BMI 25.6
[2022-06-19] MEDS: LACTATED RINGERS 500 ML 999 ML IV (18:40)
[2022-06-19] MEDS: Ondansetron 4 MG/2 ML Vial IV (18:41)
[2022-06-19 18:52] LABS: Mucous, Urine 0 SEEN /hpf (<or=2+); Red Blood Cells-Urine 0 SEEN /hpf (0-5)
[2022-06-19 18:56] LABS: Color, Urine Straw (Yellow); Glucose, Dipstick Normal (Normal); Ketone-Dipstick Negative (Negative); Leukocyte Esterase-Dipstick 500 /ul (Negative); Nitrite-Dipstick Negative (Negative); Occult Blood-Urine Negative /ul (Negative); Protein-Dipstick Negative (Negative); Urine Bilirubin Dipstick Negative (Negative); Urine Clarity Clear (Clear); Urine Urobilinogen Normal (Normal)
[2022-06-19 18:57] LABS: Hematocrit 37.3 % (37-47); Hemoglobin 12.8 g/dL (12.0-15.0); Mean Corp Hgb Conc 34.3 g/dL (32-36); Mean Corpuscular Hgb 31.5 pg (27.0-32.0); Mean Corpuscular Volume 91.9 fL (81-99); Mean Platelet Vol. 10.7 fl (6.2-12.0); Platelet Count 287 K/mm3 (150-450); RBC Distribution Width CV 12.2 % (11.6-14.6); RBC Distribution Width SD 40.8 fl (35.1-43.9); Red Blood Count 4.06 M/mm3 (4.2-5.4); White Blood Count 21.2 K/mm3 (4.4-11.0)
[2022-06-19 19:05] LABS: White Blood Cells 5-10 SEEN /hpf (0-5)
[2022-06-19 19:06] LABS: Protein, Urine (Random) 13.7 mg/dL (<11.9); Protein:Creat Ratio 269 mg/g CRE (0-200)
[2022-06-19 19:07] LABS: Bacteria 3+ /hpf (None Seen); Squamous Epithelial Cells - UA 0-5 SEEN /hpf (5-10)
[2022-06-19 19:24] LABS: AST(SGOT) 45 U/L (15-37); Alanine Aminotransfer ALT/SGPT 32 U/L (13-56); Creatinine, Serum 0.76 mg/dL (0.55-1.02); EST Glomerular Filtration Rate 96 mL/min (>60); Est Glom Filt Rate - Afr Amer 116 mL/min (>60); Uric Acid 3.8 mg/dL (2.6-6.0)
[2022-06-19 19:38] LABS: Amphetamine Urine VISTA NEGATIVE (<1000 ng/mL); Barbiturate Urine VISTA NEGATIVE (< 200 ng/mL); Benzodiazepine Urine VISTA NEGATIVE (< 200 ng/mL); Cocaine Urine VISTA NEGATIVE (< 300 ng/mL); Ecstacy Urine VISTA NEGATIVE (< 500 ng/mL); Methadone Urine VISTA NEGATIVE (< 300 ng/mL); PCP Urine VISTA NEGATIVE (< 25 ng/mL); THC Urine VISTA POSITIVE (< 50 ng/mL); Vista UDS pH Range 7
[2022-06-19] MEDS: Lactated Ringers 1,000 ML 200 ML IV (19:39)
[2022-06-19] MEDS: fentaNYL-bupivacaine (epidural) 100 ML BAG EPIDURAL (20:02)
[2022-06-20] VITALS (22 sets, daily range): BP systolic 117–173; BP diastolic 62–114; PULSE 50–88; RESP 16; TEMP 35.8–37.2; O2SAT 82–100
[2022-06-20] MEDS: Lactated Ringers 1,000 ML 200 ML IV (00:43)
[2022-06-20] MEDS: fentaNYL-bupivacaine (epidural) 100 ML BAG EPIDURAL (01:09)
[2022-06-20] MEDS: Oxytocin 30 units/NS 500 ml 30 UNITS/500 ML IV.SOLN IV (05:20)
[2022-06-20] MEDS: Oxytocin 30 units/NS 500 ml 30 UNITS/500 ML IV.SOLN 334 UNITS IV (07:52)
--- NOTE | 2022-06-20 08:01 | EX.PCM.OBRPT ---
Assessment & Plan (1) 38 weeks gestation of : (2) Nulliparity: (3) Spontaneous onset of labor: (4) (spontaneous vaginal delivery): (5) Second degree laceration of perineum, delivered, current hospitalization: Maternal Data Information Final VALARIE: 06/29/22 Gestational age: 38 5/7 Vaginal Delivery Maternal Presentation Maternal Presentation: Active Labor Operative Information Date of Procedure: 06/20/22 Pre-Operative Diagnosis: labor Post-Operative Diagnosis: same Surgery / Procedure Performed: Spontaneous Vaginal Delivery Type of Anesthesia: Epidural Special Medications: none Drain: Duran to straight drain Estimated Blood Loss: 300 Time of Delivery: 07:43 Findings Description of Procedure: A vigorous male was delivered KIANA over a second-degree perineal laceration. The remainder the infant was delivered with maternal pushing and gentle traction only in less than 15 seconds. The Pitocin infusion was initiated for active management of the third stage. The cord was clamped and cut after 1 minute. The was attended to by the waiting nursing staff. The placenta was delivered spontaneously and intact. The cervix and vagina were intact. The second-degree perineal laceration was repaired with 3-0 Vicryl suture in a running standard fashion. Sponge and needle counts were correct. A vaginal sweep was completed by me. Presentation: KIANA Amniotic Membrane Rupture Type: Spontaneous Amniotic Fluid Description: Clear Placental Delivery Description: Spontaneous (There was an accessory lobe.) Placenta Disposition: [facility] Cord Vessel Description: 3 Vessels Cord Entanglement: None Infant A Gender: Male (Rajendra) (1 minute): 9 (5 minute): 9 Delayed Cord Clamping: Yes Post Vaginal Delivery Medications Given After Delivery: IV Pitocin Episiotomy Description: None Laceration: 2nd degree Complication Complications: None
--- NOTE | 2022-06-20 08:05 | PCM.HP.OB ---
HPI - General General Date of Admission: 06/19/22 Chief Complaint: labor HPI Narrative SAMUEL KINNEY, is a 26-year-old 2 para 0-0-1-0 who presents at 38-5/7 weeks gestation on 06/19/2022 with spontaneous labor. PFSH PFSH Medical History no medical history Home Medications [id number] 1 mg tablet 1 tab PO DAILY 06/19/22 [History Last Taken 06/18/22 09:00] Allergy/AdvReac Type Severity Reaction Status Date / Time No Known Allergies Allergy Verified 06/19/22 17:05 Surgical History no surgical history Social History (Updated 11/19/20 @ 13:06 by Delonte CHILDS, PA) Smoking Status: Never smoker History Elective abortions Hx Para 0 Spontaneous abortions Hx # Term Pregnancies Ectopic pregnancies Hx # Pregnancies Multiple births # of living children Vital Signs Vital Signs Vital Signs: 06/19/22 17:00 06/19/22 17:00 06/19/22 17:00 Temperature Temperature Source Temporal Pulse Rate 94 Blood Pressure 144/83 H BP Systolic 144 BP Diastolic 83 Pulse Ox 06/19/22 17:00 06/19/22 17:32 06/19/22 17:32 Temperature 99.2 F H Temperature Source Pulse Rate 75 Blood Pressure 131/83 H BP Systolic 131 BP Diastolic 83 Pulse Ox 06/19/22 17:44 06/19/22 17:44 06/19/22 18:44 Temperature Temperature Source Temporal Pulse Rate 67 Blood Pressure 140/67 H BP Systolic 140 BP Diastolic 67 Pulse Ox 06/19/22 18:45 06/19/22 18:45 06/19/22 18:44 Temperature Temperature Source Pulse Rate 69 Blood Pressure 135/92 H BP Systolic 135 BP Diastolic 92 Pulse Ox 100 06/19/22 18:44 06/19/22 19:27 06/19/22 19:27 Temperature 98.3 F Temperature Source Pulse Rate 73 Blood Pressure BP Systolic BP Diastolic Pulse Ox 97 06/19/22 19:29 06/19/22 19:29 06/19/22 19:31 Temperature Temperature Source Pulse Rate 67 67 Blood Pressure 140/94 H BP Systolic 140 BP Diastolic 94 Pulse Ox 06/19/22 19:31 06/19/22 19:33 06/19/22 19:33 Temperature Temperature Source Pulse Rate 88 Blood Pressure 143/89 H BP Systolic 143 BP Diastolic 89 Pulse Ox 93 06/19/22 19:32 06/19/22 19:37 06/19/22 19:37 Temperature Temperature Source Pulse Rate 87 Blood Pressure 156/81 H BP Systolic 156 BP Diastolic 81 Pulse Ox 98 06/19/22 19:37 06/19/22 19:37 06/19/22 19:37 Temperature Temperature Source Pulse Rate 88 Blood Pressure BP Systolic BP Diastolic Pulse Ox 93 96 06/19/22 19:42 06/19/22 19:42 06/19/22 19:43 Temperature Temperature Source Pulse Rate 83 Blood Pressure 139/76 H BP Systolic 139 BP Diastolic 76 Pulse Ox 100 06/19/22 19:43 06/19/22 19:47 06/19/22 19:47 Temperature Temperature Source Pulse Rate 88 86 Blood Pressure BP Systolic BP Diastolic Pulse Ox 100 06/19/22 19:50 06/19/22 19:50 06/19/22 19:53 Temperature Temperature Source Pulse Rate 96 Blood Pressure 123/91 H BP Systolic 123 BP Diastolic 91 Pulse Ox 89 06/19/22 19:53 06/19/22 19:53 06/19/22 19:53 Temperature Temperature Source Pulse Rate 76 74 Blood Pressure BP Systolic BP Diastolic Pulse Ox 98 06/19/22 19:58 06/19/22 19:58 06/19/22 19:58 Temperature Temperature Source Pulse Rate 80 86 Blood Pressure 154/90 H BP Systolic 154 BP Diastolic 90 Pulse Ox 06/19/22 19:58 06/19/22 20:03 06/19/22 20:03 Temperature Temperature Source Pulse Rate 70 Blood Pressure 142/92 H BP Systolic 142 BP Diastolic 92 Pulse Ox 99 06/19/22 20:04 06/19/22 20:04 06/19/22 20:08 Temperature Temperature Source Pulse Rate 79 Blood Pressure 154/97 H BP Systolic 154 BP Diastolic 97 Pulse Ox 98 06/19/22 20:08 06/19/22 20:09 06/19/22 20:09 Temperature Temperature Source Pulse Rate 64 71 Blood Pressure BP Systolic BP Diastolic Pulse Ox 83 06/19/22 20:12 06/19/22 20:12 06/19/22 20:14 Temperature Temperature Source Pulse Rate 65 83 Blood Pressure 140/81 H BP Systolic 140 BP Diastolic 81 Pulse Ox 06/19/22 20:14 06/19/22 20:19 06/19/22 20:19 Temperature Temperature Source Pulse Rate 80 Blood Pressure BP Systolic BP Diastolic Pulse Ox 98 99 06/19/22 20:24 06/19/22 20:24 06/19/22 20:29 Temperature Temperature Source Pulse Rate 68 87 Blood Pressure BP Systolic BP Diastolic Pulse Ox 98 06/19/22 20:29 06/19/22 20:34 06/19/22 20:34 Temperature Temperature Source Pulse Rate 83 Blood Pressure BP Systolic BP Diastolic Pulse Ox 97 96 06/19/22 20:39 06/19/22 20:39 06/19/22 20:43 Temperature Temperature Source Pulse Rate 79 Blood Pressure 139/87 H BP Systolic 139 BP Diastolic 87 Pulse Ox 96 06/19/22 20:43 06/19/22 20:44 06/19/22 20:44 Temperature Temperature Source Pulse Rate 75 80 Blood Pressure BP Systolic BP Diastolic Pulse Ox 96 06/19/22 20:52 06/19/22 20:52 06/19/22 20:57 Temperature Temperature Source Pulse Rate 86 71 Blood Pressure BP Systolic BP Diastolic Pulse Ox 98 06/19/22 20:57 06/19/22 21:02 06/19/22 21:02 Temperature Temperature Source Pulse Rate 77 Blood Pressure BP Systolic BP Diastolic Pulse Ox 98 98 06/19/22 21:07 06/19/22 21:07 06/19/22 21:12 Temperature Temperature Source Pulse Rate 75 66 Blood Pressure BP Systolic BP Diastolic Pulse Ox 98 06/19/22 21:12 06/19/22 21:13 06/19/22 21:13 Temperature Temperature Source Pulse Rate 69 Blood Pressure 135/79 H BP Systolic 135 BP Diastolic 79 Pulse Ox 98 06/19/22 21:17 06/19/22 21:17 06/19/22 21:22 Temperature Temperature Source Pulse Rate 78 78 Blood Pressure BP Systolic BP Diastolic Pulse Ox 98 06/19/22 21:22 06/19/22 21:27 06/19/22 21:27 Temperature Temperature Source Pulse Rate 87 Blood Pressure BP Systolic BP Diastolic Pulse Ox 98 98 06/19/22 21:32 06/19/22 21:32 06/19/22 21:37 Temperature Temperature Source Pulse Rate 82 76 Blood Pressure BP Systolic BP Diastolic Pulse Ox 97 06/19/22 21:37 06/19/22 21:42 06/19/22 21:42 Temperature Temperature Source Pulse Rate 72 Blood Pressure BP Systolic BP Diastolic Pulse Ox 98 98 06/19/22 21:47 06/19/22 21:47 06/19/22 22:32 Temperature Temperature Source Pulse Rate 67 Blood Pressure 152/90 H BP Systolic 152 BP Diastolic 90 Pulse Ox 98 06/19/22 22:32 06/19/22 22:33 06/19/22 22:33 Temperature Temperature Source Pulse Rate 69 68 Blood Pressure 128/72 H BP Systolic 128 BP Diastolic 72 Pulse Ox 06/19/22 23:27 06/19/22 23:27 06/19/22 23:28 Temperature Temperature Source Pulse Rate 80 Blood Pressure 156/78 H 145/82 H BP Systolic 156 145 BP Diastolic 78 82 Pulse Ox 06/19/22 23:28 06/19/22 23:28 06/20/22 00:41 Temperature Temperature Source Temporal Pulse Rate 74 Blood Pressure 134/77 H BP Systolic 134 BP Diastolic 77 Pulse Ox 06/20/22 00:41 06/19/22 23:28 06/20/22 02:15 Temperature 98.4 F Temperature Source Pulse Rate 61 Blood Pressure 134/84 H BP Systolic 134 BP Diastolic 84 Pulse Ox 06/20/22 02:15 06/20/22 02:15 06/20/22 02:15 Temperature 97.8 F Temperature Source Temporal Pulse Rate 88 Blood Pressure BP Systolic BP Diastolic Pulse Ox 06/20/22 03:30 06/20/22 03:30 06/20/22 07:16 Temperature Temperature Source Pulse Rate 69 Blood Pressure 141/83 H 148/102 H BP Systolic 141 148 BP Diastolic 83 102 Pulse Ox 06/20/22 07:16 06/20/22 07:16 06/20/22 07:16 Temperature Temperature Source Temporal Pulse Rate 75 75 Blood Pressure BP Systolic BP Diastolic Pulse Ox 06/20/22 07:16 06/20/22 08:01 06/20/22 08:01 Temperature 99.0 F Temperature Source Pulse Rate 75 Blood Pressure 132/76 H BP Systolic 132 BP Diastolic 76 Pulse Ox 06/20/22 06:15 06/20/22 06:15 Temperature 98.6 F Temperature Source Temporal Pulse Rate Blood Pressure BP Systolic BP Diastolic Pulse Ox Weight Weight: 61.5 kg Body Mass Index (BMI) 25.6 Physical Exam Const alert and no apparent distress General Appearance: cooperative HEENT normocephalic Resp normal respiratory effort Cardio regular rate GI soft to palpation GI Narrative: gravid, nontender, appropriate for gestational age Extremity no calf tenderness General Extremity: edema Skin no wounds Rashes: No rashes noted Psych activity/motor behavior normal Labs Labs Labs: Blood Type O POSITIVE Antibody Screen NEGATIVE Hct 37.3 % (37-47) Hgb 12.8 g/dL (12.0-15.0) Assessment & Plan (1) Spontaneous onset of labor: PLAN: Estimated weight less than 4500 g and pelvis clinically adequate to expect vaginal delivery. Expectant management for vaginal delivery. May have epidural or other pain control measures as indicated. (2) Nulliparity: (3) 38 weeks gestation of :
[2022-06-20] MEDS: Ibuprofen 600 MG Tablet PO ×2 (09:40→20:40)
[2022-06-20] MEDS: 0.9% Saline Lock 10 ML Syringe IV (10:48)
[2022-06-20] MEDS: Acetaminophen 500 MG Tablet 1000 MG PO (15:24)
[2022-06-21] MEDS: Acetaminophen 500 MG Tablet 1000 MG PO (00:35)
[2022-06-21 00:50] VITALS: BP 107/49; PULSE 70; RESP 16; TEMP 36; O2SAT 99
[2022-06-21 05:00] VITALS: BP 124/71; PULSE 71; RESP 16; TEMP 36.3; O2SAT 99
--- NOTE | 2022-06-21 07:42 | PCM.PN.OB ---
Subjective Subjective Denies complaints. No headache or blurry vision. Objective Data Objective Data Vital Signs: Vital Signs Temp Pulse Resp BP Pulse Ox O2 Del Method 97.3 F L 71 16 124/71 H 99 Room Air 06/21/22 05:00 06/21/22 05:00 06/21/22 05:00 06/21/22 05:00 06/21/22 05:00 06/21/22 05:00 Oxygen Delivery Method Room Air Weight: 135 lb 9.349 oz Body Mass Index (BMI) 25.6 Intake & Output: Intake and Output for Last 24 Hours 06/19/22 06/20/22 06/21/22 23:59 23:59 23:59 Intake Total 500 / 500 2508.84 / 2508.84 Output Total 2200 / 2200 Balance 500 / -400 308.84 / 308.84 Lab / Micro Data Result Diagrams: 06/19/22 18:20 06/19/22 18:20 Micro: Microbiology 06/19/22 18:40 Nasal Secretion SARS-CoV-2 Antigen (Rapid) - Final Physical Exam Const alert, oriented x3 and no apparent distress HEENT normocephalic GI soft to palpation, non-tender and non-distended GI Narrative: fundus firm, mid & below umbilicus Extremity normal to inspection and no calf tenderness Assessment & Plan (1) (spontaneous vaginal delivery): COMMENT: PPD#1 PLAN: Routine PP care Elevated BP in labor & PP but normal for the past 20 hours. Will check preE labs and monitor BPs. If all normal patient requests discharge home later today. Social work consult in progress
--- NOTE | 2022-06-21 07:48 | DCINST_ITS ---
Discharge Instructions Diet Discharge Diet: No restrictions Activity Discharge Activity: May Shower May resume sexual activity in: 6 weeks Weight Bearing Status: Weight bearing as tolerated Dressing / Incision Call your doctor if you observe: Fever of 101 or Higher, Coldness, Increased Pain, Change in Color, Inability to urinate, Inability to have a bowel movement, Using more than 1 pad per hour, Shortness of breath, Dizziness, Fainting spells, Chest pain, Increased palpitations (irregular heartbeat), Calf discomfort and Uncontrolled pain Suture Line Care: Avoid Pulling/Pushing and Avoid Pinching/Bending Remove Dressing in: 1 week Cleanse incision/area with: Soap & Water Follow Up Care Please Follow Up With: Susy Pollock MD When: Follow up in 2 and 6 weeks for visits. Test Results: Test results from this visit will be discussed in further detail at your follow- up appointment, if applicable. Discharge Plan Admission Admit Date/Time: 06/19/22 18:15 Primary Reason for Your Visit: Vaginal delivery Attending Provider: Susy Pollock Primary Care Provider: Care Physician,No Primary Discharge Orders/Prescriptions Prescriptions: New acetaminophen 500 mg Tablet 1,000 mg PO Q6H PRN PRN (Reason: Pain 1-10 Or Fever) Qty: 0 0RF ibuprofen 600 mg Tablet 600 mg PO Q6H PRN PRN (Reason: Pain Score 1-3) Qty: 0 0RF Continued ovjrbpkr-[id number]-Ak-FA 1 mg Tablet 1 tab PO DAILY Referrals / Follow Up: Care Physician,No Primary [Primary Care Provider] - Disposition Disposition (needs filled in before D/C Order can be placed): Home, Self Care
[2022-06-21 08:54] VITALS: BP 130/82; PULSE 65; RESP 14; TEMP 36.4; O2SAT 100
[2022-06-21 09:21] LABS: Absolute Lymphocyte Count 2.13 X10^3/uL (0.83-4.51); Absolute Neutrophil Count 14.8 X10^3/uL (2.0-7.7); Basophil# 0.06 X10^3/uL; Basophil% 0.3 % (0-1); Eosinophils% 0.6 % (0-5); Hematocrit 35.8 % (37-47); Hemoglobin 11.8 g/dL (12.0-15.0); Lymphocyte # 2.13 X10^3/ul (0.83-4.51); Mean Corpuscular Hgb 31.3 pg (27.0-32.0); Mean Platelet Vol. 10.3 fl (6.2-12.0); Monocyte# 0.57 X10^3/uL; Monocyte% 3.2 % (0-10); NRBC Flagged by Analyzer 0 % (0-5); Neutrophil # 14.83 X10^3/uL (2.7-7.7); Neutrophil % 83.2 % (47-70); Platelet Count 260 K/mm3 (150-450); RBC Distribution Width CV 12.6 % (11.6-14.6); RBC Distribution Width SD 43.4 fl (35.1-43.9); Red Blood Count 3.77 M/mm3 (4.2-5.4); White Blood Count 17.8 K/mm3 (4.4-11.0)
[2022-06-21 09:43] LABS: ALB/GLOB Ratio 0.6 RATIO (0.9-2.4); AST(SGOT) 59 U/L (15-37); Alanine Aminotransfer ALT/SGPT 34 U/L (13-56); Albumin, Serum 2.3 g/dL (3.2-5.0); Alkaline Phosphatase 165 U/L (45-117); Anion Gap 4 (5-15); BUN 6 mg/dL (7-18); BUN/Creat Ratio 9.9 RATIO (10-20); Calcium,Total 8.4 mg/dL (8.5-10.1); Chloride 109 mmol/L (98-107); Creatinine, Serum 0.61 mg/dL (0.55-1.02); EST Glomerular Filtration Rate 125 mL/min (>60); Est Glom Filt Rate - Afr Amer 152 mL/min (>60); Estimated Creatinine Clearance 104.54 ml/min; Globulin 3.7 g/dL (2.2-4.2); Glucose 85 mg/dL (74-106); LDH 311 U/L (84-246); Sodium Level 140 mmol/L (136-145); Uric Acid 4.5 mg/dL (2.6-6.0)
--- NOTE | 2022-06-21 09:44 | CASEMGMT ---
Addendum entered by Alicia Nicole 06/21/22 13:27: Social Work SW spoke w/Children's Services Worker Boom Miguel from [facility]. She states she has no concerns about MOB. She is going to go to MOB's home to do a quick home visit, and if everything is okay she will call in to [facility] to let staff know pt is cleared for discharge. wood drilling machine operator and bedside RN both aware. They will let SW know if baby is not able to go home. CALLUM Gamboa Addendum entered by Alicia Nicole 06/21/22 09:58: Social Work SW went in to see pt w/airport security screener, asked FOB to leave. FOB states everything was fine but since FOB would not get MOB coffee, she wants him to leave. FOB states he is the father and doesn't understand why he needs to leave. He states she is probably going through withdrawal right now. SW explained to FOB that it is the patient's right to say whether or not she wants visitors, regardless of the relationship w/the visitor. Upon further discussion, FOB did leave. He wants to speak w/Children's Services when they arrive. SW took his name and number, Bryan Moran, . Bryan states that the living conditions that MOB is bringing baby back to are unsafe, states MOB has been having panic attacks or something where she starts shaking and her eyes dart around. He also states that MOB is not paying attention, is texting on the phone when she is feeding the baby. SW received call back from [facility]'s [facility]. Boom Miguel is coming to see MOB at 11:30. SW relayed all of the above information to [facility]'s Services and let them know that the FOB was asked to leave, he wants to be called when they are here. JANENE will continue to follow. CALLUM Gamboa Original Note: Social Work SW informed when arrived to unit that FOB called Children's Services and now it is the nurse's understanding that someone from [facility] needs to come see the pt prior to pt leaving. JANENE called [facility]'s Services in [facility], it is confirmed a case is open and a worker needs to come see MOB prior to discharge. SW to receive a call back from [facility] as to when the worker will arrive. SW just notified that MOB would like FOB to leave. SW will check in w/them shortly. CALLUM Gamboa
--- NOTE | 2022-06-21 10:44 | NURSING ---
Dr. Bautista Bravo called to update on lab work. States she will be in to look at patient's chart. Do not discharge till she comes back to unit
[2022-06-21 14:05] VITALS: BP 132/64; PULSE 52; RESP 16; TEMP 36.5
[2022-06-21] MEDS: Ibuprofen 600 MG Tablet PO (14:12)
--- NOTE | 2022-06-21 14:24 | CASEMGMT ---
Social Work Boom Miguel from [facility] in [facility] called, she states that she did a home tour, everything is appropriate, MOB has support in place and baby and MOB are okay to go home today. SW let pt's bedside RN know. No further needs anticipated. CALLUM Gamboa
--- NOTE | 2022-06-21 15:25 | DS.PCM_ITS ---
Providers Date of Admission: 06/19/22 Primary Care Physician: No Primary Care Phys Reason For Visit: LABOR/VAGINAL DELIVERY Subjective Subjective: 06/21/22 14:24 - Case Management Note by Alicia Nicole Acct Num: [id number]? : 1995? Patient Age: 26 Social Work Boom Miguel from [facility] in [facility] called, she states that she did a home tour, everything is appropriate, MOB has support in place and baby and MOB are okay to go home today.? SW let pt's bedside RN know.? No further needs anticipated.? GLENDA Gamboa-S Initialized on 06/21/22 14:24 - END OF NOTE Assessment Medication Administrations: Medication Administrations Generic Name Dose Route Start Last Admin Trade Name Freq PRN Reason Stop Dose Admin Acetaminophen 1,000 mg 06/20/22 08:33 06/21/22 00:35 Acetaminophen 500 Mg Tablet PO 1,000 mg Q6H PRN PRN Administration Pain 1-10 or Fever Ibuprofen 600 mg 06/20/22 08:33 06/21/22 14:12 Ibuprofen 600 Mg Tablet PO 600 mg Q6H PRN PRN Administration Pain Score 1-3 Sodium Chloride 5 - 15 ml 06/20/22 08:33 06/20/22 10:48 0.9% Saline Lock 10 Ml Syringe IV 10 ml UD PRN Administration SALINE FLUSH Discontinued Medications Generic Name Dose Route Start Last Admin Trade Name Freq PRN Reason Stop Dose Admin Fentanyl/Bupivacaine/Sodium Chlor 0 ml 06/19/22 19:40 06/20/22 01:09 Fentanyl-Bupivacaine (Epidural) 100 Ml Bag EPIDURAL 100 ml UD CHRISTOPHER Administration Protocol Lactated Ringer's 500 mls @ 999 mls/hr 06/19/22 18:12 06/19/22 19:11 Lactated Ringers IV Infused .Q31M PRN Infusion Epidural Lactated Ringer's 1,000 mls @ 50 mls/hr 06/19/22 18:15 06/20/22 07:50 IV Infused .Q20H CHRISTOPHER Infusion Oxytocin/Sodium Chloride 30 units in 500 mls @ 2 mls/hr 06/20/22 05:20 06/20/22 07:50 IV Infused .Q250H CHRSITOPHER Infusion Oxytocin/Sodium Chloride 30 units in 500 mls @ 334 mls/hr 06/20/22 08:33 06/20/22 12:00 IV 06/20/22 09:03 Infused .Q1H30M CHRISTOPHER Infusion Meperidine HCl 25 mg 06/19/22 19:21 06/19/22 19:25 Meperidine 25 Mg/Ml Syringe IV 06/19/22 19:22 25 mg X1 ONE Administration Ondansetron HCl 4 mg 06/19/22 18:12 06/19/22 18:41 Ondansetron 4 Mg/2 Ml Vial IV 4 mg Q4H PRN PRN Administration NAUSEA History/Labs/Procedures History/Labs/Procedures: Temp Pulse Resp BP Pulse Ox O2 Del Method 97.7 F L 52 L 16 132/64 H 100 Room Air 06/21/22 14:05 06/21/22 14:05 06/21/22 14:05 06/21/22 14:05 06/21/22 08:54 06/21/22 14:05 Weight: 61.5 kg Labs (Last 48 Hours) 06/19/22 06/19/22 06/19/22 18:20 18:20 18:20 WBC 21.2 H RBC 4.06 L Hgb 12.8 Hct 37.3 MCV 91.9 MCH 31.5 MCHC 34.3 RDW Std Deviation 40.8 RDW Coeff of Cornelius 12.2 Plt Count 287 MPV 10.7 Immature Gran % (Auto) Neut % (Auto) Lymph % (Auto) [place] % (Auto) Eos % (Auto) Baso % (Auto) Absolute Neuts (auto) Absolute Lymphs (auto) Nucleated RBC % Sodium Potassium Chloride Carbon Dioxide Anion Gap BUN Creatinine 0.76 Estim Creat Clear Calc 83.90 Est GFR (MDRD) Af Amer 116 Est GFR (MDRD) Non-Af 96 BUN/Creatinine Ratio Glucose Uric Acid 3.8 Calcium Total Bilirubin AST 45 H ALT 32 Alkaline Phosphatase Lactate Dehydrogenase Total Protein Albumin Globulin Albumin/Globulin Ratio Urine Color Urine Clarity Urine pH Ur Specific Sparkill Urine Protein Urine Glucose (UA) Urine Ketones Urine Occult Blood Urine Nitrite Urine Bilirubin Urine Urobilinogen Ur Leukocyte Esterase Urine RBC Urine WBC Ur Squamous Epith Cells Urine Bacteria Urine Mucus U Random Total Protein Urine Creatinine Protein/Creatinin Ratio Urine Opiates Screen Urine Methadone Screen Ur Barbiturates Screen Ur Phencyclidine Scrn Ur Amphetamines Screen MDMA (Ecstasy) Screen U Benzodiazepines Scrn Urine Cocaine Screen U Cannabinoids Screen Ur Drug Screen Comment Blood Type O POSITIVE Antibody Screen NEGATIVE 06/19/22 06/19/22 06/19/22 18:40 18:40 18:40 WBC RBC Hgb Hct MCV MCH MCHC RDW Std Deviation RDW Coeff of Cornelius Plt Count MPV Immature Gran % (Auto) Neut % (Auto) Lymph % (Auto) [place] % (Auto) Eos % (Auto) Baso % (Auto) Absolute Neuts (auto) Absolute Lymphs (auto) Nucleated RBC % Sodium Potassium Chloride Carbon Dioxide Anion Gap BUN Creatinine Estim Creat Clear Calc Est GFR (MDRD) Af Amer Est GFR (MDRD) Non-Af BUN/Creatinine Ratio Glucose Uric Acid Calcium Total Bilirubin AST ALT Alkaline Phosphatase Lactate Dehydrogenase Total Protein Albumin Globulin Albumin/Globulin Ratio Urine Color Straw Urine Clarity Clear Urine pH 7.0 Ur Specific Spark[place] 1.010 Urine Protein Negative Urine Glucose (UA) Normal Urine Ketones Negative Urine Occult Blood Negative Urine Nitrite Negative Urine Bilirubin Negative Urine Urobilinogen Normal Ur Leukocyte Esterase 500 H Urine RBC 0 SEEN Urine WBC 5-10 SEEN Ur Squamous Epith Cells 0-5 SEEN Urine Bacteria 3+ Urine Mucus 0 SEEN U Random Total Protein 13.7 H Urine Creatinine 50.90 Protein/Creatinin Ratio 269 H Urine Opiates Screen NEGATIVE Urine Methadone Screen NEGATIVE Ur Barbiturates Screen NEGATIVE Ur Phencyclidine Scrn NEGATIVE Ur Amphetamines Screen NEGATIVE MDMA (Ecstasy) Screen NEGATIVE U Benzodiazepines Scrn NEGATIVE Urine Cocaine Screen NEGATIVE U Cannabinoids Screen POSITIVE H Ur Drug Screen Comment Blood Type Antibody Screen 06/21/22 06/21/22 09:05 09:05 WBC 17.8 H RBC 3.77 L Hgb 11.8 L Hct 35.8 L MCV 95.0 MCH 31.3 MCHC 33.0 RDW Std Deviation 43.4 RDW Coeff of Cornelius 12.6 Plt Count 260 MPV 10.3 Immature Gran % (Auto) 0.700 Neut % (Auto) 83.2 H Lymph % (Auto) 12.0 L [place] % (Auto) 3.2 Eos % (Auto) 0.6 Baso % (Auto) 0.3 Absolute Neuts (auto) 14.8 H Absolute Lymphs (auto) 2.13 Nucleated RBC % 0 Sodium 140 Potassium 4.0 Chloride 109 H Carbon Dioxide 27.0 Anion Gap 4 L BUN 6 L Creatinine 0.61 Estim Creat Clear Calc 104.54 Est GFR (MDRD) Af Amer 152 Est GFR (MDRD) Non-Af 125 BUN/Creatinine Ratio 9.9 L Glucose 85 Uric Acid 4.5 Calcium 8.4 L Total Bilirubin 0.20 AST 59 H ALT 34 Alkaline Phosphatase 165 H Lactate Dehydrogenase 311 H Total Protein 6.0 L Albumin 2.3 L Globulin 3.7 Albumin/Globulin Ratio 0.6 L Urine Color Urine Clarity Urine pH Ur Specific Spark[place] Urine Protein Urine Glucose (UA) Urine Ketones Urine Occult Blood Urine Nitrite Urine Bilirubin Urine Urobilinogen Ur Leukocyte Esterase Urine RBC Urine WBC Ur Squamous Epith Cells Urine Bacteria Urine Mucus U Random Total Protein Urine Creatinine Protein/Creatinin Ratio Urine Opiates Screen Urine Methadone Screen Ur Barbiturates Screen Ur Phencyclidine Scrn Ur Amphetamines Screen MDMA (Ecstasy) Screen U Benzodiazepines Scrn Urine Cocaine Screen U Cannabinoids Screen Ur Drug Screen Comment Blood Type Antibody Screen Microbiology 06/19/22 18:40 Nasal Secretion SARS-CoV-2 Antigen (Rapid) - Final Medications at Discharge Home Medications [id number] 1 mg tablet 1 tab PO DAILY 06/19/22 acetaminophen 500 mg tablet 1,000 mg PO Q6H PRN PRN Pain 1-10 Or Fever #0 tabs 06/21/22 ibuprofen 600 mg tablet 600 mg PO Q6H PRN PRN Pain Score 1-3 #0 tabs 06/21/22 General Weight: 61.5 kg Discharge Plan Admission Admit Date/Time: 06/19/22 18:15 Primary Reason for Your Visit: Vaginal delivery Attending Provider: Susy Pollock Primary Care Provider: Care PhysicianSabine Primary Instructions Additional Instructions / Restrictions: Follow up on Thursday in the office. Call office at 8:00am to schedule appointment. Discharge Orders/Prescriptions Prescriptions: New acetaminophen 500 mg Tablet 1,000 mg PO Q6H PRN PRN (Reason: Pain 1-10 Or Fever) Qty: 0 0RF ibuprofen 600 mg Tablet 600 mg PO Q6H PRN PRN (Reason: Pain Score 1-3) Qty: 0 0RF Continued [id number]-[id number]-[id number]-FA 1 mg Tablet 1 tab PO DAILY Referrals / Follow Up: Sabine Gil Primary [Primary Care Provider] - Disposition Disposition (needs filled in before D/C Order can be placed): Home, Self Care
--- NOTE | 2022-06-25 13:37 | NURSING ---
Follow up phone call complete. Mother is doing well. Her bleeding has decreased since delivery. No concerns of headache, visual changes, flu-like symptoms, or emotional changes. Baby doing well. Formula fed and doing well. Mother understands her discharge instructions and has no questions at this time.
== END 2022-06-21 16:00 | disposition home or self-care (01) | DRG 560 ==
LOC: WPOUT 18:17 → WP 18:17
PROVIDERS: Obstetrics & Gynecology; Admitting Provider Obstetrics & Gynecology; Visit Provider Obstetrics & Gynecology
DX: O70.1 Second degree perineal laceration during delivery (principal); Z37.0 Single live birth; Z3A.38 38 weeks gestation of pregnancy
CPT/HCPCS: 59025; 59050; 80053; 80307; 81001; 82565; 82570; 83615; 84156; 84450; 84460; 84550; 85025; 85027; 86850; 86900; 86901; 87426; 99218; J7120; A4216; G0378; J2405